=== PATIENT | female | born 1975 ===

== ENCOUNTER 2024-09-20 13:49 | Emergency (ER) | payer MEDICAID, SELFPAY ==
[2024-09-20 13:54] VITALS: BP 136/74; PULSE 80; RESP 18; TEMP 36.6; O2SAT 98; BMI 26.5
--- NOTE | 2024-09-20 13:54 | ED_ITS ---
HPI - Abdominal Pain General Chief Complaint: Abdominal Pain Stated Complaint: Abd pain/swelling, headache, Tingling all over Time Seen by Provider: 09/20/24 17:14 History of Present Illness ED Provider: Chet Huang MD HPI narrative: 48-year-old female with no primary physician/medical insurance who presents with acute intermittent an acute on chronic right low back pain with radicular symptoms down the right leg as well as subjective abdominal distention discomfort particularly in the midepigastrium and bilateral lower quadrants. No vomiting but she does endorse nausea. Appetite has been good. She moves her bowels daily denies hard stool or constipation. No burning or frequency or other urinary symptoms. Related Data Allergies Allergy/AdvReac Type Severity Reaction Status Date / Time Penicillins (PCN) Allergy Unknown Verified 09/20/24 13:57 [facility] Social History Social History Alcohol intake: former Physical Exam ED Exam Exam: EXAM: Gen: Alert, awake, well appearing, well hydrated. Head: Atraumatic Eyes: Anicteric, Normal conjunctiva. ENT: Moist mucosa, no pallor. ? Neck: Supple. Skin: ?No observable rash or bruising on exposed or examined skin Respiratory: Breathing comfortably, No distress.Clear to auscultation bilaterally, symmetric chest expansion, No wheeze, rales, ronchi. Cardiovascular: Regular rate and rhythm. No murmurs or rub. Well perfused periphery, warm extremities. No edema. ? Abdominal: Mild obesity of the abdomen. Minimal epigastric tenderness Soft, no objective distension. No palpable masses or obvious organomegaly. ?No guarding, no rebound tenderness or other peritoneal findings. : No flank tenderness. Neuro: Alert. Gross movement of all extremities intact. ? Psych: Calm. Cooperative. MSK: No grossly visible deformity. Mild right lumbosacral tenderness pain with passive elevation bilateral legs left greater than right in supine position. No CVAT. Normal muscular tone full range of motion of the hips knees ankles. Vital signs: See flowsheet Vital Signs: Vital Signs - 24 hr 09/20/24 18:01 09/20/24 18:02 Temperature 97.0 F 97.0 F Pulse Rate 58 58 Respiratory Rate 14 14 Blood Pressure 144/90 H 144/90 H Pulse Oximetry 98 98 Oxygen Delivery Method Room Air Room Air BMI result Body Mass Index 26.5 Procedures Procedure Narrative Procedure Narrative: EMERGENCY ULTRASOUND INTERPRETATION-Limited Retroperitoneal (Renal) [This study was ordered, performed, and interpreted by myself. The study reveals: Impression: NO EVIDENCE OF UROLOGIC OBSTRUCTION] [Indication: FLANK PAIN Bladder: ANECHOIC URINE Right Kidney: NO HYDRONEPHROSIS Left Kidney: NO HYDRONEPHROSIS Performed by: Chet Huang MD Images were stored CPT: 43849] Course Course Course Narrative: CHRIS Dickerson 09/20/24 1355 This is a Rapid Medical Examination (RME) performed by Juju Cardozo PA-C in triage. Full HPI, ROS, assessment and treatment plan per primary provider in the Main ED. Hx: 48 yo F here for eval of diffuse abdominal pain/bloating x1. reports nausea with eating. s/p tubal ligations - no other abd surgeries Plan: labs, UA Medical Decision Making Medical Decision Making MDM Narrative: Medical Decision Makin-year-old female with history of hypothyroidism chronic recurring abdominal discomfort today has this once again comes for evaluation. Unfortunately patient is describing an uninsured status with no regular PCP. I was able to review ED record from September [address] abdomen and lumbar spine was done at that time with degenerative disc disease and bulging discs in the lumbar spine likely causing a recurrence of radicular pain today. There is no motor deficits or red flag signs or symptoms to suggest cauda equina or cord compression. She is afebrile looks well and is ambulatory. She may be constipated she does not have significant tenderness to suggest that this is an acute surgical etiology. Considered but doubt diverticulitis. Considered but unlikely urinary infection or other urinary etiology given the urinalysis labs and overall presentation and examination. She may be bloated/constipated/gas/gastritis/GERD. We will try to get case management involved see if they can help with establishing insurance Preliminary Favored Differential Diagnosis: [ ] among additional considered etiologies Testing Interpreted Independently: Not Applicable Radiology or Lab testing Results Reviewed: Not Applicable Consults: Case management for uninsured status. Independent Historians/External Chart Reviews: I reviewed [facility] records specifically 09/16/2023 ED records including documentation of the plan of care and CTs which showed no acute abdominal pathology and positive bulging discs L4-L5 lumbar Social Determinants of Health Impacting MDM/Planning: Not Applicable Lab Data 09/20/24 14:16 09/20/24 14:16 Labs: Lab Results 09/20/24 Range/Units 14:16 WBC 7.3 (4.8-10.8) X10*3/uL RBC 3.88 L (4.20-5.50) X10*6/uL Hgb 12.0 (12.0-16.0) g/dl Hct 35.7 L (37.0-47.0) % MCV 92.0 (80.0-98.0) fL MCH 30.9 (27.0-33.0) pg MCHC 33.6 (31.0-35.0) g/dl RDW 14.4 (11.0-16.0) % Plt Count 218 (160-400) X10*3/uL MPV 9.8 (9.4-12.3) fL Immature Gran % (Auto) 0.5 H (0.0-0.4) % Neut % (Auto) 62.8 (45-73) % Lymph % (Auto) 21.6 (20-40) % [place] % (Auto) 10.4 (2-11) % Eos % (Auto) 3.7 (0-4) % Baso % (Auto) 1.0 (0-2) % Lymph # (Auto) 1.6 (1.2-4.9) X10*3/uL [place] # (Auto) 0.8 (0.1-1.2) X10*3/uL Eos # (Auto) 0.3 (0.0-0.4) X10*3/uL Baso # (Auto) 0.1 (0.0-0.2) X10*3/uL Abs Immat Gran (auto) 0.04 H (0.00-0.03) X10*3/uL Absolute Neuts (auto) 4.6 (2.0-8.3) x10*3/uL Absolute Nucleated RBC 0.000 (0.0-0.012) X10*3/uL Nucleated RBC % (auto) 0.0 (0.0-0.2) /100WBC Sodium 139 (135-145) mmol/L Potassium 4.0 (3.3-5.1) mmol/L Chloride 105 (96-108) mmol/L Carbon Dioxide 26 (22-29) mmol/L Anion Gap 12 (12-20) BUN 12 (9-16) mg/dL Creatinine 0.90 (0.5-1.4) mg/dL Estim Creat Clear Calc 69.4 Estimated GFR > 60 Random Glucose 82 (60-115) mg/dL Calcium 9.3 (8.4-10.2) mg/dL Magnesium 2.3 (1.6-2.6) mg/dL Total Bilirubin 0.2 (0.0-1.0) mg/dL AST 46 H (5-31) U/L ALT 36 H (0-31) U/L Alkaline Phosphatase 97 (39-117) U/L Total Protein 7.5 (6.5-8.0) g/dL Albumin 4.6 (3.5-5.0) g/dL Lipase 42 (8-78) U/L Urine Color Yellow Urine Appearance Clear Urine pH 7.0 (5.0-9.0) Ur Specific [place] 1.025 (1.005-1.025) Urine Protein Negative (Neg-Trace) mg/dL Urine Glucose (UA) Negative (Negative) mg/dL Urine Ketones Trace (Negative) mg/dL Urine Blood Negative (Negative) Urine Nitrite Negative (Negative) Ur Leukocyte Esterase Negative (Negative) Medications Administered Discontinued Medications Generic Name Dose Route Start Last Admin Trade Name Bernadine PRN Reason Stop Dose Admin Acetaminophen 975 mg 09/20/24 17:33 09/20/24 17:40 Acetaminophen 325 Mg Tablet PO 09/20/24 17:34 975 mg ONCE ONE Administration Al Hydroxide/Mg Hydroxide 30 ml 09/20/24 17:33 09/20/24 17:40 Magnesium Hydrox/Alum Hydrox 30 Ml Oral.Susp PO 09/20/24 17:34 30 ml ONCE ONE Administration Ibuprofen 600 mg 09/20/24 17:33 09/20/24 17:40 Ibuprofen 600 Mg Tablet PO 09/20/24 17:34 600 mg ONCE ONE Administration Simethicone 160 mg 09/20/24 17:33 09/20/24 17:40 Simethicone 80 Mg Tab.Chew PO 09/20/24 17:34 160 mg ONCE ONE Administration Discharge Plan Discharge Clinical Impression: Abdominal pain, Bulging lumbar disc Patient Disposition: Home, Self-Care Instructions: Acute Abdominal Pain (DC) Additional Instructions: _ DISCHARGE DIAGNOSES: Abdominal pain unclear cause Right low back pain acute on chronic likely from bulging discs in the lumbar spine HISTORY OF PRESENTATION: ?Abdominal pain this subjective distention and right low back pain EMERGENCY DEPARTMENT COURSE,TESTS, TREATMENTS: While in the ED today we did lab work including blood counts electrolytes kidney liver function which was reassuring you had a mild elevation of the liver function tests. You had an ultrasound of your kidneys with no sign of blockage. Your liver showed signs of fatty liver disease DISCHARGE MEDICATIONS: ?[We have made no changes to your regular medication regimen] FOLLOW-UP: ?Call your primary or general physician soon as possible to discuss your symptoms, your ED visit and to discuss follow up plans Call for primary doctor office as we discussed INSTRUCTIONS ?& RETURN PRECAUTIONS: If any symptoms change first call your primary physician, if it is after-hours your primary doctors office should have a provider risk control product liability director you can speak with. If the symptoms are severe or very concerning to you then call 911 or return to the ED. Chet Huang MD Emergency Physician [facility] Interventions: ED Discharge Assessment Last Done: 09/20/24 18:02 Discharge Date/Time: 09/20/24 18:03 Print Language: Serbian
[2024-09-20 14:51] LABS: MANUAL DIFF FLAG NO
[2024-09-20 14:52] LABS: Hematocrit 35.7 % (37.0-47.0); Hemoglobin 12.0 g/dl (12.0-16.0); Imm Gran Abs Auto 0.04 X10*3/uL (0.00-0.03); Imm Gran Pct Auto 0.5 % (0.0-0.4); Lymphocytes Absolute Auto 1.6 X10*3/uL (1.2-4.9); Mean Corpuscular HGB Conc 33.6 g/dl (31.0-35.0); Mean Corpuscular Hemoglobin 30.9 pg (27.0-33.0); Mean Corpuscular Volume 92.0 fL (80.0-98.0); NRBC Abs Auto 0.000 X10*3/uL (0.0-0.012); NRBC Pct Auto 0.0 /100WBC (0.0-0.2); Platelet Count 218 X10*3/uL (160-400); Red Blood Count 3.88 X10*6/uL (4.20-5.50); White Blood Count 7.3 X10*3/uL (4.8-10.8)
[2024-09-20 15:04] LABS: Appearance Urine Clear; Glucose Urine UA Negative (Negative); PH 7.0 (5.0-9.0); Specific Gravity - Urine 1.025 (1.005-1.025)
[2024-09-20 15:07] LABS: Alanine Aminotransferase 36 U/L (0-31); Albumin Level 4.6 g/dL (3.5-5.0); Alkaline Phosphatase 97 U/L (39-117); Anion Gap 12 (12-20); Aspartate Amino Transferase 46 U/L (5-31); Blood Urea Nitrogen 12 mg/dL (9-16); Calcium 9.3 mg/dL (8.4-10.2); Carbon Dioxide 26 mmol/L (22-29); Chloride 105 mmol/L (96-108); Creatinine Clr Calc Pharmacy 69.4; Estimated Glomerular Filt Rate > 60; Lipase 42 U/L (8-78); Magnesium 2.3 mg/dL (1.6-2.6); Potassium 4.0 mmol/L (3.3-5.1); Sodium 139 mmol/L (135-145); Total Protein 7.5 g/dL (6.5-8.0)
[2024-09-20] MEDS: Magnesium Hydrox/Alum Hydrox 30 ML ORAL.SUSP PO (17:40)
[2024-09-20 18:01] VITALS: BP 144/90; PULSE 58; RESP 14; TEMP 36.1; O2SAT 98
[2024-09-20 18:02] VITALS: BP 144/90; PULSE 58; RESP 14; TEMP 36.1; O2SAT 98
== END 2024-09-20 18:03 | disposition home or self-care (01) ==
PROVIDERS: Physician Assistant Medical; Emergency Provider Emergency Medicine
DX: M51.369 Other intervertebral disc degeneration, lumbar region without mention of lumbar back pain or lower extremity pain (principal); R10.2 Pelvic and perineal pain; M54.50 Low back pain, unspecified; M79.604 Pain in right leg; R11.0 Nausea
CPT/HCPCS: 36415; 80053; 81003; 83690; 83735; 85025; 99283; 99284

== ENCOUNTER 2024-10-08 13:07 | Emergency (ER) | payer MEDICAID, SELFPAY ==
[2024-10-08 13:16] VITALS: BP 155/97; PULSE 96; RESP 18; TEMP 36.7; O2SAT 97; BMI 28.7
--- NOTE | 2024-10-08 13:21 | ED.GENADULT ---
HPI - General Adult General Chief complaint: Animal Bite Stated complaint: swollen left hand due to cat scratch Time Seen by Provider: 10/08/24 13:19 Source: patient, RN notes reviewed and old records reviewed Mode of arrival: ambulatory Limitations: no limitations History of Present Illness ED Provider: Luis HPI narrative: 48-year-old female presents for evaluation of cat scratches to her left arm and face. This was an encounter with her own cat who is an indoor cat. The patient tried to peanut picker her that around 4:30 a.m. this morning. The cat became and ligaments with the left arm/wrist and ribs side of her face. The patient with some swelling to the left hand and wrist today prompting her visit. She has full range of motion on denies fevers or chills The patient does not know when her last tetanus shot was Related Data Previous Rx's ?Medication ?Instructions ?Recorded doxycycline hyclate 100 mg tablet 100 mg PO BID #14 tabs 10/08/24 metronidazole 500 mg tablet 500 mg PO Q8H #21 tabs 10/08/24 Allergies Allergy/AdvReac Type Severity Reaction Status Date / Time Penicillins (PCN) Allergy Unknown Verified 10/08/24 13:18 Review of Systems Constitutional: Constitutional: Denies chills and Denies fever(s) Cardiovascular: Cardiovascular: Denies chest pain Musculoskeletal: Musculoskeletal: Reports arthralgias, Reports joint swelling, Reports limited range of motion, Denies radiating pain into limb and Denies stiffness Integumentary/Breasts: Skin/Breast: Reports wounds Psychiatric: Psychiatric: Denies anxiety PMFSH Social History Social History Alcohol intake: former Advance Directives: No Advance Directives Information Provided: No Do you have a plan to hurt others: No Plan Physical Exam ED Vital Signs: Vital Signs - 24 hr 10/08/24 13:16 10/08/24 13:28 10/08/24 13:29 Temperature 98.1 F 98.1 F 98.1 F Pulse Rate 96 96 96 Respiratory Rate 18 18 18 Blood Pressure 155/97 H 155/97 H 155/97 H Pulse Oximetry 97 97 97 Oxygen Delivery Method Room Air Room Air Room Air BMI result Body Mass Index 28.7 Const General: healthy appearing, comfortable, no acute distress, alert and awake Nutritional Appearance: well nourished Orientation/consciousness: patient oriented x3 Eyes Eyelids: Yes eyelids normal Conjunctivae: conjunctivae normal Sclerae: sclerae normal Corneas: corneas normal Pupils: Equal, round and reactive pupils present EOM: EOMs intact bilaterally Neck Neck: Yes full ROM Resp Effort & Inspection: normal respiratory effort, able to speak in complete sentences and not labored Cardio Rate: regular rate Rhythm: regular rhythm Skin Other: The patient has numerous superficial abrasions to the left dorsal forearm, wrist and hand. There is minimal edema, no significant surrounding erythema. The patient retains full range of motion with flexion-extension of the wrist as well as all digits of the left hand. There were additionally several small abrasions to the right side of the face in the periorbital region. No deep wounds or lacerations, no surrounding erythema General skin exam: elasticity normal Neuro General: patient oriented x3 Cranial nerves: Yes Equal, round and reactive pupils present and Yes Bilaterally intact EOM present Cognition (Neuro): normal cognition Extrem Other: Moving all extremities well without any obvious deformities Medications Administered Discontinued Medications Generic Name Dose Route Start Last Admin Trade Name Freq PRN Reason Stop Dose Admin Diphtheria/Tetanus/Acell Pertussis 0.5 ml 10/08/24 13:19 10/08/24 13:26 Diphth,Pertus(Acell),Tet Adult 0.5 Ml Syringe IM 10/08/24 13:20 0.5 ml .ONCE ONE Administration Medical Decision Making Medical Decision Making [facility] Narrative: The patient has several small superficial scratches to the left hand, wrist and right side of the face. No deep wounds or lacerations. The wounds were cleaned by the patient already. There was no evidence of active infection. The patient reports a penicillin allergy we will treat with doxycycline and Flagyl for prophylaxis. The patient's tetanus was updated. Return precautions were given Differential Diagnosis Differential Diagnoses: The differential diagnosis associated with the presentation includes Cat scratch Cat bite Cellulitis Puncture wound Abrasion Discharge Plan Discharge Clinical Impression: Cat scratch of hand Patient Disposition: Home, Self-Care Instructions: Animal Bite (ED) Additional Instructions: Take both antibiotics as prescribed for 7 days to prevent infection Keep the area clean and dry, you may apply topical antibiotic pain Return to the ER if you develop significantly worsening pain, swelling or fevers. Your tetanus was updated today Prescriptions: New doxycycline hyclate 100 mg tablet 100 mg PO BID Qty: 14 0RF metronidazole 500 mg tablet 500 mg PO Q8H Qty: 21 0RF Interventions: ED Discharge Assessment Last Done: 10/08/24 13:29 ED Discharge Assessment Last Done: 10/08/24 13:28 Discharge Date/Time: 10/08/24 13:30 Print Language: Spanish
[2024-10-08] MEDS: Diphth,Pertus(ACell),Tet Adult 0.5 ML SYRINGE IM (13:26)
--- OUTSIDE RECORDS SUMMARY | 2024-10-08 13:27 | XMS_ITS | Clinical Summary ---
Author Organization [facility] Address [address] [place] [address] Care Team Providers Care Conference Interpreter Name Role Phone Bailey Islas LASTER HAND-C Primary Care Provider + Source Comments PLEASE NOTE, if this patient is a minor, it may be UNLAWFUL to discuss sensitive information that is contained in these records (such as FAMILY PLANNING, MENTAL HEALTH or SUBSTANCE ABUSE) with the minor patient's parent or other person without the patient's specific authorization.VIVIANA Allergies Active Allergy Reactions Criticality Noted Date Comments Penicillins Other (See Comments) 03/08/2017 Medications beclomethasone dipropionate (QVAR) 40 mcg/actuation inhalerIndication s:Mild persistent asthma without complication (HHS-HCC) Inhale 2 Puffs into the lungs 2 (two) times daily 8.7 Inhaler 5 0 Active albuterol sulfate 90 mcg/actuation inhalerIndication s:Mild persistent asthma without complication (HHS-HCC) Inhale 2 Puffs into the lungs every 4 (four) hours as needed for wheezing 18 g 5 0 Active ferrous sulfate 325 mg (65 mg iron) tabletIndications :Microcytic anemia,Iron deficiency anemia, unspecified iron deficiency anemia type Take 1 Tablet by mouth once daily with breakfast 30 Tablet 2 1 Active calcipotriene-bet amethasone (TACLONEX) 0.005-0.064 % ointmentIndicatio ns:Plaque psoriasis Apply topically once daily treat psoriasis. 100 g 2 1 Active sertraline (ZOLOFT) 50 mg tabletIndications :generalized anxiety disorder Take 1 Tablet by mouth every morning Indications: repeated episodes of anxiety 30 Tablet 2 1 Active clobetasoL (TEMOVATE) 0.05 % ointmentIndicatio ns:Plaque psoriasis Apply topically 2 (two) times daily 45 g 1 Active ibuprofen 800 mg tabletIndications :Frequent headaches Take 1 Tablet by mouth 3 (three) times daily as needed for headaches, moderate pain or pain 90 Tablet 1 1 Active Active Problems Problem Noted Date Diagnosed Date Class 1 obesity 07/31/2020 Plaque psoriasis 07/31/2020 Anxiety 07/31/2020 Light tobacco smoker 07/31/2020 Other specified hypothyroidism 03/24/2018 Overview (03/24/2018): Patient reports needing thyroid hormone supplementation when she was years ago. TSH . Immunizations Immunization Administration Dates Next Due Flu, Preservative Free 03/08/2017 TDAP 03/08/2017 Social History Tobacco Use Types Packs/Day Years Used Date Smoking Tobacco: Every Day Cigarettes Smokeless Tobacco: Never Tobacco Cessation:Ready to Q uit: Yes Alcohol Use Standard Drinks/Week Comments Yes 0 (1 standard drink = 0.6 oz pur e alcohol) Social Connections Answer Date Recorded Connectedness 0 10/23/2023 Financial Resource Strain Answer Date R ecorded Financial Resource Strain 0 2018 Stress Answer Date Recorded Stress 0 10/07/2018 Physical Activity Answer Date Recorded Physical Activity 0 10/07/2018 Food Insecurity Answer Date Recorded Food 0 11/11/2023 Transportation Needs Answer Date Record ed Transportation 0 10/07/2018 Housing Stability Answer Date Recorded Housing 0 10/07/2018 Safety and Environment Answer Date Nicola rded Safety 0 07/19/2020 Utilities Answer Date Recorded Utilities 0 10/07/2018 Employment Answer Date Recorded Employment 0 10/07/2018 Comments No Sex and Gender Information Value Date Recorded Sex Assigned at Female 03/08/2017 1:32 PM PST Legal Sex Female 11:30 AM PST Gender Identity Female 03/08/2017 1:32 PM PST Sexual Orientation Straight 03/08/2017 1: 32 PM PST Last Filed Vital Signs Vital Sign Reading Time Taken Comments Blood Pressure 110/84 07/19/2020 2:16 PM EDT Pulse 73 07/19/2020 2:16 PM EDT Temperature 37.3 C (99.1 F) 07/19/2020 2:16 PM EDT Respiratory Rate 16 07/19/2020 2:16 PM EDT Oxygen Saturation 97% 07/19/2020 2:16 PM EDT Inhaled Oxygen Concentration - - Weight 77.1 kg (170 lb) 07/19/2020 2:16 PM EDT Height 157.5 cm (5' 2 ) 07/19/2020 2:16 PM EDT Body Mass Index 31.09 07/19/2020 2:16 PM EDT Plan of Treatment Health Maintenance Due Date Last Done Comments Anxiety Screening 1977 HPV Screening 1977 Hepatitis C Screening 1977 Pap + HPV 1977 Imm-Hepatitis B (1 of 3 - 19 + 3-dose series) 1996 Imm-Pneumococcal (1 of 2 - PCV) 1996 Cervical Cancer Screening 1998 Pap Smear 1998 Breast Cancer Screening (Mammogram) 2017 Annual Wellness (Adult): Ind icated (All Coverage) 03/08/2018 03/08/2017 Hypertension Screening (#1) 07/19/2021 Relationship Safety Screening/Counseling 07/19/2021 07/19/2020 TSH Monitoring 07/19/2021 07/19/2020, 03/24/2018 Tobacco Cessation Counseling (#1) 07/19/2021 021 Tobacco Screening 07/19/2021 07/19/2020 CT Colonography 2022 Colonoscopy 2022 Colorectal Cancer Screening 2022 FIT/gFOBT 2022 Fecal DNA 2022 Flexible Sigmoidoscopy 2022 Diabetes Screening 07/20/2023 07/19/2020, 0 07/19/2020, 03/24/2018 [id number] ( season) 2023 021, 10/10/2020 Alcohol and Drug Screen 02/16/2024 07/19/2020, 03/08 Depression Annual Screen 02/16/2024 07/19/2020, 02/16 Imm-Influenza (#1) 2024 03/08/2017 Lipid Screening 07/19/2025 07/19/2020, 03/24/2018 Imm-DTaP/Tdap/Td (2 - Td or Tdap) 03/08/2027 018 HIV Screening Completed 07/19/2020 Cervical Ablation/Cold-Knife Conization Discontinued Cervical Cryotherapy Discontinued Colposcopy Discontinued Endometrial Biopsy Discontinued Excision/Leep Discontinued HPV Genotyping Discontinued Vaginal Pap Discontinued Vulvoscopy Discontinued Procedures Procedure Name Priority Date/Time Associated Diagnosis Comments HIV 1/2 AG & AB W/RFLX (4TH GEN) Routine 07/19/2020 3:29 PM EDT Screening for HIV (human immunodeficiency virus) TSH W/RFLX FREE T4 Routine 07/19/2020 3: 29 PM EDT Annual physical exam COMPREHENSIVE METABOLIC PANEL Routine 07/19/2020 3:29 PM EDT Annual physical exam LIPID PANEL Routine 07/19/2020 3:29 PM EDT Annual physical exam from Last 3 Months or Most Recently Relevant to Health Maintenance Results * HIV 1/2 AG & AB W/RFLX (4TH GEN) (07/19/2020 3:29 PM EDT) Pathologist [facility] HIV AG/AB, 4TH GEN NON-REAC TIVE NON-REAC TIVE [facility] Comment: HIV-1 antigen and HIV-1/HIV-2 antibodies were not detected. There is no laboratory evidence of HIV infection. PLEASE NOTE: This information has been disclosed to you from records whose confidentiality may be protected by state law. If your state requires such protection, then the state law prohibits you from making any further disclosure of the information without the specific written consent of the person to whom it pertains, or as otherwise permitted by law. A general authorization for the release of medical or other information is NOT sufficient for this purpose. For additional information please refer to http://education.EVOFEM.Machina/faq/EZE256 (This link is being provided for informational/ educational purposes only.) The performance of this assay has not been clinically validated in patients less than 2 years old. Blood Blood / Unknown 07/19/2020 3 :29 PM EDT 07/19/2020 3:29 PM EDT us Kimmy Valdovinos PA-C LAB - BLOOD DRAW Edited Result - Final Performing Organization Address [facility] Co de Phone Number [facility] [address] [address], [facility] [address] [address] * (ABNORMAL) TSH W/RFLX FREE T4 (07/19/2020 3:29 PM EDT) TSH W/REFLEX TO FT4 59.26(H) 0.40 - 4.50 mIU/L [facility] Comment: Reference Range > or = 20 Years 0.40-4.50 Ranges First trimester 0.26-2.66 Second trimester 0.55-2.73 Third trimester 0.43-2.91 Blood Blood / Unknown 07/19/2020 3 :29 PM EDT 07/19/2020 3:29 PM EDT us Kimmy Valdovinos PA-C LAB - BLOOD DRAW Edited Result - Final Performing Organization Address [facility] Co de Phone Number [facility] [address] [address], [facility] [address] [address] * (ABNORMAL) LIPID PANEL (07/19/2020 3:29 PM EDT) CHOLESTEROL, TOTAL 178 <200 mg/dL [facility] HDL CHOLESTEROL 30(L) > OR = 50 mg/dL [facility] TRIGLYCERIDES 196(H) <150 mg/dL [facility] LDL-CHOLESTEROL 116(H) 99 mg/dL (calc) [facility] Comment: Reference range: <100 Desirable range <100 mg/dL for primary prevention; <70 mg/dL for patients with CHD or diabetic patients with > or = 2 CHD risk factors. LDL-C is now calculated using the Bashir calculation, which is a validated novel method providing better accuracy than the Friedewald equation in the estimation of LDL-C. César KAPOOR et al. AGUSTIN. 2013;310(19): 4110-1225 (http://7Road.[employer]/faq/WWF814) CHOL/HDLC RATIO 5.9(H) <5.0 (calc) [employer] NON-HDL CHOLESTEROL 148(H) <130 mg/dL (calc) [employer] Comment: For patients with diabetes plus 1 major ASCVD risk factor, treating to a non-HDL-C goal of <100 mg/dL (LDL-C of <70 mg/dL) is considered a therapeutic option. Blood Blood / Unknown 07/19/2020 3 :29 PM EDT 07/19/2020 3:29 PM EDT us Kimmy Valdovinos PA-C LAB - BLOOD DRAW Edited Result - Final [facility] [address] [address], [employer] [facility] [address] [address] * COMPREHENSIVE METABOLIC PANEL (07/19/2020 3:29 PM EDT) GLUCOSE 66 65 - 99 mg/dL [employer] [facility] Comment: Fasting reference interval UREA NITROGEN (BUN) 11 7 - 25 mg/dL [employer] [facility] CREATININE (blood) 0.85 0.50 - 1.10 mg/dL [employer] [facility] GFR ESTIMATED 85 > OR = 60 mL/min/[address] [employer] [facility] EGFR 98 > OR = 60 mL/min/[address] [employer] [address] [facility] BUN/CREATININE RATIO NOT APPLICABLE 6 - 22 [employer] SODIUM 137 135 - 146 mmol/L [employer] POTASSIUM 4.0 3.5 - 5.3 mmol/L [employer] CHLORIDE 104 98 - 110 mmol/L [employer] CARBON DIOXIDE 25 20 - 32 mmol/L [employer] CALCIUM 9.6 8.6 - 10.2 mg/dL [employer] PROTEIN, TOTAL 7.5 6.1 - 8.1 g/dL [facility] ALBUMIN 4.7 3.6 - 5.1 g/dL [facility] GLOBULIN 2.8 1.9 - 3.7 g/dL (calc) [facility] ALBUMIN/GLOBUL IN RATIO 1.7 1.0 - 2.5 (calc) [facility] BILIRUBIN, TOTAL 0.3 0.2 - 1.2 mg/dL [facility] ALKALINE PHOSPHATASE 85 31 - 125 U/L [facility] AST 24 10 - 30 U/L [facility] ALT 25 6 - 29 U/L [facility] Blood Blood / Unknown 07/19/2020 3 :29 PM EDT 07/19/2020 3:29 PM EDT Kimmy Valdovinos PA-C LAB - BLOOD DRAW Edited Result - Final [facility] [address] [address], [facility] [address] [address] from Last 3 Months or Most Recently Relevant to Health Maintenance Care Teams Conference Interpreter Relationship Specialty Start Date End Date Bailey Islas FNP-C [address] [place] [address] PCP - General 10/29/21
[2024-10-08 13:28] VITALS: BP 155/97; PULSE 96; RESP 18; TEMP 36.7; O2SAT 97
[2024-10-08 13:29] VITALS: BP 155/97; PULSE 96; RESP 18; TEMP 36.7; O2SAT 97
== END 2024-10-08 13:30 | disposition home or self-care (01) ==
PROVIDERS: Emergency Provider Emergency Medicine
DX: S60.512A Abrasion of left hand, initial encounter (principal); W55.03XA Scratched by cat, initial encounter; Y93.89 Activity, other specified; Y92.89 Other specified places as the place of occurrence of the external cause; Y99.9 Unspecified external cause status; M79.89 Other specified soft tissue disorders; Z23 Encounter for immunization
CPT/HCPCS: 90471; 90715; 99282; 99284

== ENCOUNTER 2024-10-09 15:30 | Inpatient (IN) | payer MEDICAID, SELFPAY ==
--- NOTE | ~2024-10-09 | XR_ITS ---
CLINICAL HISTORY: evaluate for FB 3 views of each hand Comparison: None Findings: Right hand: No fractures or dislocations. Mild degenerative changes of the interphalangeal joints. No erosions. No radiopaque foreign body. Left hand: No fractures or dislocations. 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 No erosions. No radiopaque foreign body. IMPRESSION: 1. No acute findings 2. No radiopaque foreign body. This document has been electronically signed by: Jasmeet Velez MD on 10/09/2024 19:58:18
[2024-10-09 15:54] VITALS: BP 135/78; PULSE 89; RESP 16; TEMP 36.8; O2SAT 98; BMI 25.6
--- NOTE | 2024-10-09 15:54 | ED.GENADULT ---
HPI - General Adult General Chief complaint: Extremity Problem Stated complaint: worsening both hands swelling (seen yesterday) Time Seen by Provider: 10/09/24 19:06 Source: patient Mode of arrival: ambulatory Limitations: no limitations History of Present Illness ED Provider: [facility] narrative: 48-year-old woman discharged on antibiotics doxycycline and metronidazole for reports of allergy to penicillin so she was not started on Augmentin, had tetanus updated, and took a total of 4 doses of antibiotics and came to the ER because she is having worsening swelling of her fingers and over the dorsum of her hand. No fevers or chills. Related Data Previous Rx's ?Medication ?Instructions ?Recorded doxycycline hyclate 100 mg tablet 100 mg PO BID #14 tabs 10/08/24 metronidazole 500 mg tablet 500 mg PO Q8H #21 tabs 10/08/24 Allergies Allergy/AdvReac Type Severity Reaction Status Date / Time Penicillins (PCN) Allergy Unknown Verified 10/09/24 16:00 Review of Systems Constitutional: Constitutional: Reports as per [facility] Social History Social History Alcohol intake: former Advance Directives: No Advance Directives Information Provided: Yes Do you have a plan to hurt others: No Plan Physical Exam ED Vital Signs: Vital Signs - 24 hr 10/09/24 15:54 10/09/24 20:18 Temperature 98.2 F 98.7 F Pulse Rate 89 79 Respiratory Rate 16 18 Blood Pressure 135/78 141/93 H Pulse Oximetry 98 96 Oxygen Delivery Method Room Air Room Air BMI result Body Mass Index 25.6 Const Other: Examination of bilateral upper extremities reveals worsening swelling of bilateral Radial ulnar pulses +2 Decreased flexion at the MCPs worse in the right hand 2nd and 3rd digit No active drainage We will range of motion of the shoulder and elbow Otherwise alert and oriented x4 patient Course Course Course Narrative: Rapid medical examination performed in triage by Dolly Brito PA-C. Patient is a 48 year old assigned female at presenting to the emergency department with a worsening cat bite. Detailed physical exam and review of systems are deferred to the chain mortiser operator. Labs ordered. Patient placed back in the waiting room pending room availability and results. Medications Administered Discontinued Medications Generic Name Dose Route Start Last Admin Trade Name Freq PRN Reason Stop Dose Admin Cefepime HCl 2 gm in 50 mls @ 100 mls/hr 10/09/24 19:23 10/09/24 20:42 Maxipime IV 10/09/24 19:52 Infused ONCE ONE Infusion Medical Decision Making Medical Decision Making MDM Narrative: Presenting with worsening cellulitis of bilateral hands on doxycycline and Flagyl, due to a known penicillin allergy, we will obtain cultures and start her on cefepime, consulted Dr. More for orthopedic consult tomorrow, we will obtain x-ray to evaluate for any foreign bodies such as canine teeth, less likely subcutaneous emphysema No evidence for arterial insufficiency, venous insufficiency, crepitus to suspect deep space infection Differential Diagnosis Differential Diagnoses: The differential diagnosis associated with the presentation includes (See above) Admission/Observation 2022 Emergency Medicine Coding Guide from [employer] on 10/09/2024 All calculations should be rechecked by clinician prior to use RESULT SUMMARY: 5 Estimated Level of Service Problems: High (5) Risk: High (5) Data: Extensive (5) NARRATIVE MDM: This patient's problem complexity is High as patient: may have an acute or chronic illness/injury posing a threat to life or body function. This patient's risk is High due to: overall presentation requiring evaluation for a potentially High-risk process. This patient's data complexity is Extensive due to: -multiple tests ordered/reviewed -independent interpretation of imaging or EKG -discussion of management/testing with external professional INPUTS: Number and Complexity ?> 2 = 5: illness/injury w/life or body threat (b) Risk level ?> 4 = High Tests ordered ?> 3 = >= Tests results reviewed (excluding labs) ?> 2 = 2 Prior external notes reviewed ?> 0 = 0 Assessment requiring and independent historian ?> 0 = No Independent interpretation of tests ?> 1 = Yes Discussed management/test interpretation w/external professional ?> 1 = Yes Lab Data [facility] Lab Attestation statement: I reviewed the patient's lab results. 10/09/24 16:52 10/09/24 16:52 Labs: Lab Results 10/09/24 Range/Units 16:52 WBC 11.4 H (4.8-10.8) X10*3/uL RBC 3.89 L (4.20-5.50) X10*6/uL Hgb 12.1 (12.0-16.0) g/dl Hct 34.7 L (37.0-47.0) % MCV 89.2 (80.0-98.0) fL MCH 31.1 (27.0-33.0) pg MCHC 34.9 (31.0-35.0) g/dl RDW 14.4 (11.0-16.0) % Plt Count 218 (160-400) X10*3/uL MPV 9.4 (9.4-12.3) fL Immature Gran % (Auto) 0.5 H (0.0-0.4) % Neut % (Auto) 79.4 H (45-73) % Lymph % (Auto) 9.9 L (20-40) % Labette % (Auto) 8.2 (2-11) % Eos % (Auto) 1.7 (0-4) % Baso % (Auto) 0.3 (0-2) % Lymph # (Auto) 1.1 L (1.2-4.9) X10*3/uL Labette # (Auto) 0.9 (0.1-1.2) X10*3/uL Eos # (Auto) 0.2 (0.0-0.4) X10*3/uL Baso # (Auto) 0.0 (0.0-0.2) X10*3/uL Abs Immat Gran (auto) 0.06 H (0.00-0.03) X10*3/uL Absolute Neuts (auto) 9.1 H (2.0-8.3) x10*3/uL Absolute Nucleated RBC 0.000 (0.0-0.012) X10*3/uL Nucleated RBC % (auto) 0.0 (0.0-0.2) /100WBC ESR 23 H (0-20) MM/HR Sodium 137 (135-145) mmol/L Potassium 3.3 (3.3-5.1) mmol/L Chloride 105 (96-108) mmol/L Carbon Dioxide 23 (22-29) mmol/L Anion Gap 12 (12-20) BUN 11 (9-16) mg/dL Creatinine 0.88 (0.5-1.4) mg/dL Estim Creat Clear Calc 69.9 Estimated GFR > 60 Random Glucose 128 H (60-115) mg/dL Lactic Acid 1.3 (0.5-2.0) mmol/L Calcium 9.0 (8.4-10.2) mg/dL Total Bilirubin 0.5 (0.0-1.0) mg/dL AST 38 H (5-31) U/L ALT 37 H (0-31) U/L Alkaline Phosphatase 101 (39-117) U/L C-Reactive Protein 9.88 H (< or = 0.50) mg/dL Total Protein 7.4 (6.5-8.0) g/dL Albumin 4.5 (3.5-5.0) g/dL Independent Interpretation I performed an independent interpretation of an: Plain X-Ray (No foreign bodies) Radiology Impression Discussion of test interpretation with radiology: I have reviewed the radiologist's reading. Critical Care Time Critical Care Time Critical Care Time: Yes Total Critical Care Time: 35 Attestation: Time is exclusive of separately billable procedures. Time includes: direct patient care, patient reassessment, coordination of patient care, interpretation of data (laboratory data, pulse oximetry, arterial blood gases and chest xrays), review of patient's medical records, medical consultation and documentation of patient care. Procedures excluded from critical care time: central intravenous line placement and electrocardiography. Discharge Plan Discharge Clinical Impression: Cellulitis of hand, left, Cellulitis of hand, right Patient Disposition: Admitted As Inpatient Print Language: Setswana
[2024-10-09 16:58] LABS: Hematocrit 34.7 % (37.0-47.0); Hemoglobin 12.1 g/dl (12.0-16.0); Imm Gran Pct Auto 0.5 % (0.0-0.4); MANUAL DIFF FLAG NO; Mean Corpuscular HGB Conc 34.9 g/dl (31.0-35.0); Mean Corpuscular Hemoglobin 31.1 pg (27.0-33.0); Mean Corpuscular Volume 89.2 fL (80.0-98.0); NRBC Pct Auto 0.0 /100WBC (0.0-0.2); Platelet Count 218 X10*3/uL (160-400); Red Blood Count 3.89 X10*6/uL (4.20-5.50); White Blood Count 11.4 X10*3/uL (4.8-10.8)
[2024-10-09 16:59] LABS: Imm Gran Abs Auto 0.06 X10*3/uL (0.00-0.03); Lymphocytes Absolute Auto 1.1 X10*3/uL (1.2-4.9); NRBC Abs Auto 0.000 X10*3/uL (0.0-0.012)
[2024-10-09 17:12] LABS: Alanine Aminotransferase 37 U/L (0-31); Albumin Level 4.5 g/dL (3.5-5.0); Alkaline Phosphatase 101 U/L (39-117); Anion Gap 12 (12-20); Aspartate Amino Transferase 38 U/L (5-31); Blood Urea Nitrogen 11 mg/dL (9-16); Calcium 9.0 mg/dL (8.4-10.2); Carbon Dioxide 23 mmol/L (22-29); Chloride 105 mmol/L (96-108); Creatinine Clr Calc Pharmacy 69.9; Estimated Glomerular Filt Rate > 60; Potassium 3.3 mmol/L (3.3-5.1); Sodium 137 mmol/L (135-145); Total Protein 7.4 g/dL (6.5-8.0)
--- OUTSIDE RECORDS SUMMARY | 2024-10-09 19:13 | XMS_ITS | Clinical Summary ---
Author Organization [address] Address [address] [place] [phone] Phone Care Team Providers Care Dog Trainer Name Role Phone Ruth Dorsey MD Primary Care Pr ovider Allergies Active Allergy Reactions Criticality Noted Date Comments Penicillins 03/01/2023 Medications levothyroxine (SYNTHROID, LEVOTHROID) 100 mcg tablet TAKE 1 TABLET BY MOUTH EVERY DAY 90 tablet 4 Active CRANBERRY EXTRACT-VITAMIN C ORAL Take by mouth daily. Active ferrous sulfate (IRON ORAL) Take by mouth daily. Active CHOLECALCIFEROL , VITAMIN D3, ORAL Take by mouth daily. Active albuterol HFA (PROAIR HFA ; PROVENTIL HFA ; VENTOLIN HFA) 90 mcg/actuation inhaler Inhale 2 Puffs into the lungs every 6 hours as needed for Cough, Wheezing or Shortness of Breath. 4 Active Active Problems Problem Noted Date Diagnosed Date Acquired hypothyroidism 03/01/2023 Gastroesophageal reflux disease without esophagi tis 03/01/2023 Iron deficiency anemia 03/01/2023 Menorrhagia with irregular cycle 03/01/2023 Moderate persistent asthma without complication 03/01/2023 Psoriasis 03/01/2023 Immunizations Name Administration Dates Next Due Influenza Quadravalent, MDCK , 0.5ml, with preservative (Flucelvax) 6mo and older 03/08/2017 Tdap Tetanus diptheria acell ular pertussis (Boostrix; Adacel) 7yo and older 03/08/2017 Surgical History Surgery Date Site/Laterality Comments TUBAL LIGATION 2009 PROCEDURE: HISTORICAL TUBAL LIGATION Social History Tobacco Use Types Packs/Day Years Used Date Smoking Tobacco: Every Day Smokeless Tobacco: Current Alcohol Use Standard Drinks/Week Comments Never 0 (1 standard drink = 0.6 oz pur e alcohol) Comments Unknown Sex and Gender Information Value Date Recorded Sex Assigned at Not on file Legal Sex Female 11:13 PM EST Gender Identity Not on file Sexual Orientation Not on file Obstetrics History Last Filed Vital Signs Vital Sign Reading Time Taken Comments Blood Pressure 118/80 10/05/2023 5:06 PM EDT Pulse 83 10/05/2023 5:06 PM EDT Temperature - - Respiratory Rate - - Oxygen Saturation - - Inhaled Oxygen Concentration - - Weight 72.1 kg (159 lb) 10/05/2023 5:06 PM EDT Height 157.5 cm (5' 2 ) 10/05/2023 5:06 PM EDT Body Mass Index 29.08 10/05/2023 5:06 PM EDT Plan of Treatment Health Maintenance Due Date Last Done Comments Breast Cancer Screening 1977 Hepatitis B Vaccines (1 of 3 - 19+ 3-dose series) 1996 Pneumococcal Vaccine: Pediatrics (0 to 5 Years) and At-Risk Patients (6 to 49 Years) (1 of 2 - PCV) 1996 Colorectal Cancer Screening: Colonoscopy 01/18/2022 HIV Screening 01/18/2022 Hepatitis C Screening 01/18/2022 Social Influencers of Health Screening 01/18/2022 COVID-19 Vaccine (3 - 2023-2 5 season) 2023 10/31/2020, 10/10/2020 Depression Screening 02/16/2024 Influenza Vaccine (#1) 2024 03/08/2017 DTaP,Tdap,and Td Vaccines (2 - Td or Tdap) 03/08/2027 03/08/2017 Cholesterol Screening (Lipid Panel) 03/01/2028 03/01/2023 Cervical Cancer Screening: HPV 03/09/2028 03/09/2023 HIB Vaccines Aged Out No longer eligi ble based on patient's age to complete this topic HPV Vaccines Aged Out No longer eligi ble based on patient's age to complete this topic Hepatitis A Vaccines Aged Out No long er eligible based on patient's age to complete this topic IPV Vaccines Aged Out No longer eligi ble based on patient's age to complete this topic MMR Vaccines Aged Out No longer eligi ble based on patient's age to complete this topic Meningococcal ACWY Vaccine Aged Out N o longer eligible based on patient's age to complete this topic Meningococcal B Vaccine Aged Out No l onger eligible based on patient's age to complete this topic RSV Immunization Patients Under 20 months Aged Out No longer eligible b ased on patient's age to complete this topic Varicella Vaccines Aged Out No longer eligible based on patient's age to complete this topic Procedures Procedure Name Priority Date/Time Associated Diagnosis Comments HPV Routine 03/09/2023 LIPID PANEL Routine 03/01/2023 from Last 3 Months or Most Recently Relevant to Health Maintenance Results * Cervical Cancer Screening: HPV (03/09/2023) Cervical Cancer Screening: HPV Negative, Abstracted Historical Provider HEALTH MAINTENANCE Final Result * (ABNORMAL) Lipid panel (03/01/2023) LDL/HDL Ratio 7(A) 0 - 4 Triglycerides 238(A) 0 - 150 mg/dL Cholesterol 206(A) 0 - 200 mg/dL HDL 30(A) >=40 mg/dL LDL Cholesterol 129(A) 0 - 100 mg/dL Blood Venous blood specimen / Unknown Historical Provider LAB BLOOD ORDERABLES Andie l Result from Last 3 Months or Most Recently Relevant to Health Maintenance Insurance [employer] Care Teams Dog Trainer Relationship Specialty Start Date End Date Ruth Dorsey MD PCP - General 02/09/23
--- OUTSIDE RECORDS SUMMARY | 2024-10-09 19:13 | XMS_ITS | Clinical Summary ---
Author Organization [facility] Address [address] [place] [address] Care Team Providers Care Tooth Clerk Name Role Phone Bailey Islas [employer]-C Primary Care Provider + Source Comments PLEASE [...] Diabetes Screening 07/20/2023 07/19/2020, 0 07/19/2020, 03/24/2018 [id number] ( season) 2023 021, 10/10/2020 Alcohol and [...] GEN) (07/19/2020 3:29 PM EDT) Pathologist [facility] HIV AG/AB, 4TH GEN NON-REAC TIVE NON-REAC TIVE [facility] Comment: HIV-1 antigen and HIV-1/HIV-2 antibodies were [...] purpose. For additional information please refer to http://education.[employer]/faq/TLJ079 (This link is being provided for informational/ educational purposes only.) The performance of this assay has not been clinically validated in patients less than 2 years old. Blood Blood / Unknown 07/19/2020 3 :29 PM EDT 07/19/2020 3:29 PM EDT us Kimmy Valdovinos PA-C LAB - BLOOD DRAW Edited Result - Final Performing Organization Address [facility] Co de Phone Number [facility] [address] [address], [facility] [address] [address] * (ABNORMAL) TSH W/RFLX FREE T4 (07/19/2020 3:29 PM EDT) TSH W/REFLEX TO FT4 59.26(H) 0.40 - 4.50 mIU/L [facility] Comment: Reference Range > or = 20 Years 0.40-4.50 Ranges First trimester 0.26-2.66 Second trimester 0.55-2.73 Third trimester 0.43-2.91 Blood Blood / Unknown 07/19/2020 3 :29 PM EDT 07/19/2020 3:29 PM EDT us Kimmy Valdovinos PA-C LAB - BLOOD DRAW Edited Result - Final Performing Organization Address [facility] Co de Phone Number [facility] [address] [address], [facility] [address] [address] * (ABNORMAL) LIPID PANEL (07/19/2020 3:29 PM EDT) CHOLESTEROL, TOTAL 178 <200 mg/dL [facility] HDL CHOLESTEROL 30(L) > OR = 50 mg/dL [facility] TRIGLYCERIDES 196(H) <150 mg/dL [facility] LDL-CHOLESTEROL 116(H) 99 mg/dL (calc) [facility] Comment: Reference range: <100 Desirable range <100 mg/dL for primary prevention; <70 mg/dL for patients with CHD or diabetic patients with > or = 2 CHD risk factors. LDL-C is now calculated using the Bashir calculation, which is a validated novel method providing better accuracy than the Friedewald equation in the estimation of LDL-C. César KAPOOR et al. AGUSTIN. 2013;310(19): 7770-0595 (http://[employer]/faq/QPM860) CHOL/HDLC RATIO 5.9(H) <5.0 (calc) [facility] NON-HDL CHOLESTEROL 148(H) <130 mg/dL (calc) [facility] Comment: For patients with diabetes plus 1 major ASCVD risk factor, treating to a non-HDL-C goal of <100 mg/dL (LDL-C of <70 mg/dL) is considered a therapeutic option. Blood Blood / Unknown 07/19/2020 3 :29 PM EDT 07/19/2020 3:29 PM EDT us Kimmy Valdovinos PA-C LAB - BLOOD DRAW Edited Result - Final [facility] [address] [address], [facility] [address] [address] * COMPREHENSIVE METABOLIC PANEL (07/19/2020 3:29 PM EDT) GLUCOSE 66 65 - 99 mg/dL [facility] Comment: Fasting reference interval UREA NITROGEN (BUN) 11 7 - 25 mg/dL [facility] CREATININE (blood) 0.85 0.50 - 1.10 mg/dL [facility] GFR ESTIMATED 85 > OR = 60 mL/min/1 .73m2 [facility] EGFR 98 > OR = 60 mL/min/1 .73m2 [facility] BUN/CREATININE RATIO NOT APPLICABLE 6 - 22 [facility] SODIUM 137 135 - 146 mmol/L [facility] POTASSIUM 4.0 3.5 - 5.3 mmol/L [facility] CHLORIDE 104 98 - 110 mmol/L [facility] CARBON DIOXIDE 25 20 - 32 mmol/L [facility] CALCIUM 9.6 8.6 - 10.2 mg/dL [facility] PROTEIN, TOTAL 7.5 6.1 - 8.1 g/dL [facility] ALBUMIN 4.7 3.6 - 5.1 g/dL [facility] GLOBULIN 2.8 1.9 - 3.7 g/dL (calc) [facility] ALBUMIN/GLOBUL IN RATIO 1.7 1.0 - 2.5 (calc) [facility] BILIRUBIN, TOTAL 0.3 0.2 - 1.2 mg/dL [facility] ALKALINE PHOSPHATASE 85 31 - 125 U/L [facility] AST 24 10 - 30 U/L [facility] ALT 25 6 - 29 U/L [facility] Blood Blood / Unknown 07/19/2020 3 :29 PM EDT 07/19/2020 3:29 PM EDT Kimmy Valdovinos PA-C LAB - BLOOD DRAW Edited Result - Final [facility] [address] [address], [facility] [address] [address] from Last 3 Months or Most Recently Relevant to Health Maintenance Care Teams Tooth Clerk Relationship Specialty Start Date End Date Bailey Islas FNP-C [address] [place] [address] PCP - General 10/29/21
[2024-10-09] MEDS: cefEPime HCl/D5W 2 GM/50 ML PIGGYBACK IV (19:58)
--- NOTE | 2024-10-09 20:12 | PC.NURSE ---
Patient is a 48 year old female who is alert and oriented x 4. Patient stating her daughters cat had bit her bilaterally on her hands. Patient stating the event happened yesterday in her house, and then she put the cat outside. Went and got a TDAP for cat bites and abx. Patient stating her hands started to swell this morning noticeably. Stating her hands were not this bad before. Started IV abx, given IV 20 g in L AC. Patient tolerated the procedure well. Verified abx does not have penicillin due to allergy.Answered all patient questions. Family at bedside stating some are due to go home, and one will return as mothers support person. Patients plan of care ongoing...
[2024-10-09 20:18] VITALS: BP 141/93; PULSE 79; RESP 18; TEMP 37.1; O2SAT 96
--- NOTE | 2024-10-09 20:56 | PM.IMHP ---
History of Present Illness Date of Service: 10/09/24 Chief Complaint: Cat bite 48-year-old female with a past medical history of asthma who presented to the hospital with a chief complaint of cat bite. Patient mentioned that her cat bite her on 10/08 am on her left arm and face. Followed by she noted swelling of the left hand and subsequently came to the ER for further evaluation. In the ER patient noted to have cat bites on her left hand, wrist and side of the face. No deep wounds. No surrounding cellulitis. Patient was empirically given doxycycline and Flagyl for prophylaxis and subsequently discharged home. After she went home she noticed increased swelling on her left hand sensory presented back to the hospital. Denies any fevers. Reports because of the swelling she has difficulty extending the fingers. Patient denies any chest pain or palpitations. Review of all other systems is negative except mentioned above ER course: Per ER team, patient noted to have swelling of the dorsum of the hands. Extension of the fingers are slightly limited because of the swelling. No surrounding erythema. X-ray showed no evidence of foreign body or gas. ER team discussed with Dr. More who said admitted to medicine service and continue antibiotics and will see the patient in the morning. PMFSH Social History Household Members: Family Housing: House Do you presently have visiting nurse or other home services: No Alcohol intake: former Patient Tobacco Use Status: Never used Tobacco Tobacco use type: Cigarette Cigarettes Per Day: 3 Years Smoked: 15 e-Cigarette/Vaping Use: Never Used Patient Interested in Nicotine Replacement: Yes (pt requesting nicotine patch) Patient Given Instructions on How to Stop Smoking: Yes Date Education Initiated: 10/09/24 Currently Displaying Signs/Symptoms of Drug Intoxication Withdrawal: No Have you been hit, kicked, punched, or otherwise hurt by someone within the past year? If so, by whom?: No Do you feel safe in your current relationship?: No Current Relationship Is there a partner from a previous relationship who is making you feel unsafe now?: No Are you made to feel afraid or neglected: No [employer] Healthcare Practices: [employer] Advance Directives: No Advance Directives Information Provided: Yes Do you have a plan to hurt others: No Plan Recently lost weight without trying: No Eating poorly because of decreased appetite: No Nutrition Risks: No Nutritional Risk Patient : No : No Poor oral hygiene: No service: No Meds Allergies Allergy/AdvReac Type Severity Reaction Status Date / Time Penicillins (PCN) Allergy Unknown Verified 10/09/24 16:00 Active Medications: Current Medications Acetaminophen (Acetaminophen 325 Mg Tablet) 650 mg PO Q6H PRN PRN Reason: Pain, Mild 1-3,fever,headache Enoxaparin Sodium (Enoxaparin Sodium 40 Mg/0.4 Ml Syringe) 40 mg SUBCUT Q24H [facility] Hydromorphone HCl (Hydromorphone Hcl 1 Mg/Ml Syringe) 0.5 mg IVPUSH Q4H PRN; Protocol PRN Reason: Pain, Severe (Pain Scale 7-10) Lactated Ringer's (Lr) 1,000 mls @ 100 mls/hr IVCONT .Q10H [facility] Magnesium Hydroxide (Milk Of Magnesia 30 Ml Oral.Susp) 30 ml PO DAILY PRN PRN Reason: Constipation Home Medications ?Medication ?Instructions ?Recorded ?Confirmed ?Last Taken ?Type ferrous sulfate 325 mg (65 mg 325 mg PO DAILY 10/09/24 10/09/24 10/08/24 History iron) tablet ibuprofen 125 mg-acetaminophen 250 2 tab PO Q8H PRN Pain 10/09/24 10/09/24 Unknown History mg tablet (Dual Action Pain Reliever) loratadine 10 mg tablet (Claritin) 10 mg PO DAILY 10/09/24 10/09/24 10/08/24 History isfbghmi-tiu-atdy-FA-Ca carb-vit K 1 tab PO DAILY 10/09/24 10/09/24 10/08/24 History 18 mg iron-400 mcg-500 mg tablet Physical Exam Vital Signs and Narrative: Vital Signs: Last Vital Signs Temp 98.7 F 10/09/24 20:18 Pulse 79 10/09/24 20:18 Resp 18 10/09/24 20:18 BP 141/93 H 10/09/24 20:18 Pulse Ox 96 10/09/24 20:18 O2 Del Method Room Air 10/09/24 20:18 BMI result Body Mass Index 25.6 Results Labs 10/10/24 05:40 10/10/24 05:40 Labs: Laboratory Results - last 24 hr 10/09/24 16:52 MCV 89.2 MCH 31.1 MCHC 34.9 RDW 14.4 Plt Count 218 MPV 9.4 Immature Gran % (Auto) 0.5 H Neut % (Auto) 79.4 H Lymph % (Auto) 9.9 L [place] % (Auto) 8.2 Eos % (Auto) 1.7 Baso % (Auto) 0.3 Lymph # (Auto) 1.1 L [place] # (Auto) 0.9 Eos # (Auto) 0.2 Baso # (Auto) 0.0 Abs Immat Gran (auto) 0.06 H Absolute Neuts (auto) 9.1 H Absolute Nucleated RBC 0.000 Nucleated RBC % (auto) 0.0 ESR 23 H Anion Gap 12 Estim Creat Clear Calc 69.9 Estimated GFR > 60 Random Glucose 128 H Lactic Acid 1.3 Calcium 9.0 Total Bilirubin 0.5 AST 38 H ALT 37 H Alkaline Phosphatase 101 C-Reactive Protein 9.88 H Total Protein 7.4 Albumin 4.5 Assessment and Plan (1) Cellulitis of hand, left: Status: Acute Plan 48-year-old female with a past medical history of asthma who presented to the hospital with a chief complaint of cat bite on the left hand and face. Noted to have swelling of the b/l hand. b/l hand cellulitis: Cat bite: Noted puncture wounds. No surrounding erythema. X-ray negative. Orthopedics team was notified. Pain control Continue cefepime and Flagyl Patient reports that cat is not vaccinated. Spoke to Dr. Peter-suggested that if the cat is not observable for 10 days or if bit unprovoked patient might need a rabies vaccine and rabies immunoglobulin around the wound. Patient mentioned that cat is not abservable as it ran out of the house. And Cat also bit her suddenly. Explained to the patient the need for rabies vaccine-patient agreeable for rabies vaccine and rabies immunoglobulin. Patient received 1st dose of rabies vaccine as well as globulin at the time of admission. Patient received tetanus shot on 10/08 in the ER. Tobacco dependence: Offered nicotine patch. Hypothyroidism: Reports that she ran out of levothyroxine and has not been taken since June. Will check TSH. And resume levothyroxine. DVT prophylaxis: Lovenox Code status: Full code Quality Stroke Does the patient have a stroke diagnosis?: No VTE Prior VTE?: No VTE Risk Level:: Medical - moderate - high VTE Device Contraindication: Treatment Not Indicated VTE Drug Contraindication: N/A - Med Ordered
--- NOTE | 2024-10-09 21:23 | PHA.MEDREC ---
Addendum entered by Jennifer Child [facility] 10/09/24 21:29: REVIEWED Original Note: Pharmacy Consult ? Medication Reconciliation Pharmacy has completed the medication reconciliation. Spoke with pt and she confirmed her medications. Pt confirmed she started the Doxycycline and Metrondiazole yesterday from [facility] ([facility] [phone]) and took them last this morning at 1140; I called [facility] and they confirmed the pt picked it up yesterday 10/08.
[2024-10-09] MEDS: metroNIDAZOLE/NS 500 MG/100 ML PIGGYBACK 100 MG IV (21:24)
[2024-10-09 22:14] VITALS: BMI 30.5
[2024-10-09 22:34] VITALS: BP 139/81; PULSE 84; RESP 16; TEMP 36.6; O2SAT 96
[2024-10-09] MEDS: Lactated Ringers 1,000 ML 100 ML IVCONT (22:40)
[2024-10-09] MEDS: Nicotine 14 MG PATCH.TD24 TRANSDERMA (23:01)
[2024-10-09 23:39] LABS: Thyroid Stimulating Hormone > 100.00 uIU/mL (0.32-4.0)
[2024-10-09 23:51] VITALS: BP 138/78; PULSE 76; RESP 16; TEMP 36.3; O2SAT 96
[2024-10-10] MEDS: Rabies Immune Globulin/PF 900 UNIT/3 ML VIAL 1512 UNIT IM (00:06)
[2024-10-10] MEDS: Rabies Vaccine (PCEC)/PF 1 ML VIAL IM (00:27)
--- NOTE | 2024-10-10 02:23 | PC.NURSE ---
Pt received rabies vaccination to left gluteus pedro also received Immunoglobulin sc to areas on left and right hand and right face by and PA.
[2024-10-10 03:31] VITALS: BP 119/64; PULSE 70; RESP 14; TEMP 36.2; O2SAT 95
[2024-10-10] MEDS: cefEPime HCl/D5W 2 GM/50 ML PIGGYBACK IV ×3 (04:41→21:21)
[2024-10-10] MEDS: metroNIDAZOLE/NS 500 MG/100 ML PIGGYBACK 100 MG IV ×3 (05:27→21:48)
[2024-10-10 06:02] LABS: MANUAL DIFF FLAG NO
[2024-10-10 06:27] LABS: Anion Gap 13 (12-20); Blood Urea Nitrogen 11 mg/dL (9-16); Calcium 9.1 mg/dL (8.4-10.2); Carbon Dioxide 21 mmol/L (22-29); Chloride 107 mmol/L (96-108); Creatinine Clr Calc Pharmacy 81.6; Estimated Glomerular Filt Rate > 60; Potassium 3.8 mmol/L (3.3-5.1); Sodium 137 mmol/L (135-145)
[2024-10-10 06:59] LABS: Hematocrit 36.7 % (37.0-47.0); Hemoglobin 12.5 g/dl (12.0-16.0); Imm Gran Abs Auto 0.05 X10*3/uL (0.00-0.03); Imm Gran Pct Auto 0.5 % (0.0-0.4); Lymphocytes Absolute Auto 1.7 X10*3/uL (1.2-4.9); Mean Corpuscular HGB Conc 34.1 g/dl (31.0-35.0); Mean Corpuscular Hemoglobin 31.1 pg (27.0-33.0); Mean Corpuscular Volume 91.3 fL (80.0-98.0); NRBC Abs Auto 0.000 X10*3/uL (0.0-0.012); NRBC Pct Auto 0.0 /100WBC (0.0-0.2); Platelet Count 232 X10*3/uL (160-400); Red Blood Count 4.02 X10*6/uL (4.20-5.50); White Blood Count 9.1 X10*3/uL (4.8-10.8)
[2024-10-10 07:39] VITALS: BP 142/84; PULSE 70; RESP 18; TEMP 36.3; O2SAT 95
[2024-10-10] MEDS: Nicotine 14 MG PATCH.TD24 TRANSDERMA (08:02)
--- NOTE | 2024-10-10 08:02 | PM.CNOR ---
History of Present Illness HPI Consult date: 10/10/24 Chief complaint: cellulitis Narrative: 48-year-old female admitted to the medical service after sustaining a cat bite to both hands. She states her daughter's cat was about to go outside when she went to stop the care and it attacked her. She was seen in the emergency department on 10/08/2024 where she was started on cefepime and Flagyl. She was discharged home and returned the following day on 10/09 due to worsening pain and swelling. Orthopedics was consulted for her recommendations. Review of Systems Review of Systems: Yes all other systems are reviewed and are negative [facility] Social History Social History Household Members: Family Housing: House Do you presently have visiting nurse or other home services: No Alcohol intake: former Patient Tobacco Use Status: Never used Tobacco Tobacco use type: Cigarette Cigarettes Per Day: 3 Years Smoked: 15 e-Cigarette/Vaping Use: Never Used Patient Interested in Nicotine Replacement: Yes (pt requesting nicotine patch) Patient Given Instructions on How to Stop Smoking: Yes Date Education Initiated: 10/09/24 Currently Displaying Signs/Symptoms of Drug Intoxication Withdrawal: No Have you been hit, kicked, punched, or otherwise hurt by someone within the past year? If so, by whom?: No Do you feel safe in your current relationship?: No Current Relationship Is there a partner from a previous relationship who is making you feel unsafe now?: No Are you made to feel afraid or neglected: No Mormonism Healthcare Practices: Shinto Advance Directives: No Advance Directives Information Provided: Yes Do you have a plan to hurt others: No Plan Recently lost weight without trying: No Eating poorly because of decreased appetite: No Nutrition Risks: No Nutritional Risk Patient : No : No Poor oral hygiene: No Meds Allergies Allergy/AdvReac Type Severity Reaction Status Date / Time Penicillins (PCN) Allergy Unknown Verified 10/09/24 16:00 Active Medications: Current Medications Acetaminophen (Acetaminophen 325 Mg Tablet) 650 mg PO Q6H PRN PRN Reason: Pain, Mild 1-3,fever,headache Last Admin: 10/09/24 22:38 Dose: 650 mg Enoxaparin Sodium (Enoxaparin Sodium 40 Mg/0.4 Ml Syringe) 40 mg SUBCUT Q24H DELVIN Last Admin: 10/09/24 21:25 Dose: 40 mg Hydromorphone HCl (Hydromorphone Hcl 1 Mg/Ml Syringe) 0.5 mg IVPUSH Q4H PRN; Protocol PRN Reason: Pain, Severe (Pain Scale 7-10) Last Admin: 10/10/24 00:38 Dose: 0.5 mg Lactated Ringer's (Lr) 1,000 mls @ 100 mls/hr IVCONT .Q10H [facility] Last Admin: 10/09/24 22:40 Dose: 100 mls/hr Cefepime HCl (Maxipime) 2 gm in 50 mls @ 100 mls/hr IV Q8H [facility] Last Infusion: 10/10/24 05:26 Dose: Infused Metronidazole (Flagyl) 500 mg in 100 mls @ 100 mls/hr IV Q8H [facility] Last Infusion: 10/10/24 06:34 Dose: Infused Magnesium Hydroxide (Milk Of Magnesia 30 Ml Oral.Susp) 30 ml PO DAILY PRN PRN Reason: Constipation Nicotine (Nicotine 14 Mg Patch.Td24) 14 mg TRANSDERMA DAILY [facility] Last Admin: 10/09/24 23:01 Dose: 14 mg Home Medications ?Medication ?Instructions ?Recorded ?Confirmed ?Last Taken ?Type ferrous sulfate 325 mg (65 mg 325 mg PO DAILY 10/09/24 10/09/24 10/08/24 History iron) tablet ibuprofen 125 mg-acetaminophen 250 2 tab PO Q8H PRN Pain 10/09/24 10/09/24 Unknown History mg tablet (Dual Action Pain Reliever) loratadine 10 mg tablet (Claritin) 10 mg PO DAILY 10/09/24 10/09/24 10/08/24 History amtxnkfs-btx-yrae-FA-Ca carb-vit K 1 tab PO DAILY 10/09/24 10/09/24 10/08/24 History 18 mg iron-400 mcg-500 mg tablet Physical Exam Vital Signs: Vital Signs: Last Vital Signs Temp 97.4 F 10/10/24 07:39 Pulse 70 10/10/24 07:39 Resp 18 10/10/24 07:39 BP 142/84 H 10/10/24 07:39 Pulse Ox 95 10/10/24 07:39 O2 Del Method Room Air 10/10/24 07:39 BMI result Body Mass Index 30.5 Extrem: Other: Left hand with various cat scratches on the dorsum of the hand and wrist No evidence of abscess formation on the dorsum or volar aspect of the hand. There is swelling on the dorsum of the hand No pain with passive extension of the digits No pain with axial loading of the digits or wrist She can attempt making a fist Vascularly intact Right hand with what appears to be a cat bite to his the dorsum of the index finger No abscess formation no drainage No pain with passive extension of the digits no pain with axial loading of the digits or wrist She can attempt to make a fist Neurovascularly intact Results Labs 10/10/24 05:40 10/10/24 05:40 Labs: Abnormal lab results 10/09/24 10/10/24 Range/Units 16:52 05:40 WBC 11.4 H (4.8-10.8) X10*3/uL RBC 3.89 L 4.02 L (4.20-5.50) X10*6/uL Hct 34.7 L 36.7 L (37.0-47.0) % Immature Gran % (Auto) 0.5 H 0.5 H (0.0-0.4) % Neut % (Auto) 79.4 H (45-73) % Lymph % (Auto) 9.9 L 18.4 L (20-40) % Lymph # (Auto) 1.1 L (1.2-4.9) X10*3/uL Abs Immat Gran (auto) 0.06 H 0.05 H (0.00-0.03) X10*3/uL Absolute Neuts (auto) 9.1 H (2.0-8.3) x10*3/uL ESR 23 H (0-20) MM/HR Carbon Dioxide 21 L (22-29) mmol/L Random Glucose 128 H (60-115) mg/dL AST 38 H (5-31) U/L ALT 37 H (0-31) U/L C-Reactive Protein 9.88 H (< or = 0.50) mg/dL TSH > 100.00 H (0.32-4.0) uIU/mL H & H 10/09/24 10/10/24 Range/Units 16:52 05:40 Hgb 12.1 12.5 (12.0-16.0) g/dl Hct 34.7 L 36.7 L (37.0-47.0) % All other labs normal. Assessment and Plan (1) Cellulitis of hand, left: Status: Acute (2) Cellulitis of hand, right: Status: Acute Plan X-rays are negative for foreign body At this time no evidence of abscess formation or flexor tenosynovitis. Recommendation is to continue IV antibiotics, elevation and OT for range of motion We will continue to follow No surgical intervention at this time. Procedures Date of Service Date of Service: 10/10/24
[2024-10-10] MEDS: Lactated Ringers 1,000 ML 100 ML IVCONT ×2 (08:03→17:54)
--- NOTE | 2024-10-10 09:28 | MHC.CM.PN ---
pt lives with her children is independent will not need services when dcd pts car is in parking lot dc plan home self care
--- NOTE | 2024-10-10 11:37 | HO.PM.IMPN ---
Subjective Subjective Date of Service: 10/10/24 Interval History: left hand cellulitis Review of Systems arm swelling/pain slightly improving no fevers Review of Systems: Yes all other systems are reviewed and are negative Physical Exam Exam: Exam: Appearance: Alert.? Oriented X3.? cvs: rrr, [id number] . res: clear to auscultation ,no rhonchii or wheezing abd: no rebound or guarding ,nt, bs present. ext pulses present , no cyanosis left arm swelling/pain similar. neuro: axo3 , nonfocal. Vital Signs: Vital Signs: Last Vital Signs Temp 97.4 F 10/10/24 07:39 Pulse 70 10/10/24 07:39 Resp 18 10/10/24 07:39 BP 142/84 H 10/10/24 07:39 Pulse Ox 95 10/10/24 07:39 O2 Del Method Room Air 10/10/24 07:39 BMI result Body Mass Index 30.5 Objective Data Active Medications Acetaminophen (Acetaminophen 325 Mg Tablet) 650 mg PO Q6H PRN PRN Reason: Pain, Mild 1-3,fever,headache Last Admin: 10/09/24 22:38 Dose: 650 mg Documented By: KATARZYNA Enoxaparin Sodium (Enoxaparin Sodium 40 Mg/0.4 Ml Syringe) 40 mg SUBCUT Q24H [facility] Last Admin: 10/09/24 21:25 Dose: 40 mg Documented By: JAMES Hydromorphone HCl (Hydromorphone Hcl 1 Mg/Ml Syringe) 0.5 mg IVPUSH Q4H PRN; Protocol PRN Reason: Pain, Severe (Pain Scale 7-10) Last Admin: 10/10/24 08:02 Dose: 0.5 mg Documented By: IAM Lactated Ringer's (Lr) 1,000 mls @ 100 mls/hr IVCONT .Q10H [facility] Last Admin: 10/10/24 08:03 Dose: 100 mls/hr Documented By: IAM Cefepime HCl (Maxipime) 2 gm in 50 mls @ 100 mls/hr IV Q8H [facility] Last Infusion: 10/10/24 05:26 Dose: Infused Documented By: JANAE Metronidazole (Flagyl) 500 mg in 100 mls @ 100 mls/hr IV Q8H [facility] Last Infusion: 10/10/24 06:34 Dose: Infused Documented By: JANAE Magnesium Hydroxide (Milk Of Magnesia 30 Ml Oral.Susp) 30 ml PO DAILY PRN PRN Reason: Constipation Nicotine (Nicotine 14 Mg Patch.Td24) 14 mg TRANSDERMA DAILY [facility] Last Admin: 10/10/24 08:02 Dose: 14 mg Documented By: IAM Labs 10/10/24 05:40 10/10/24 05:40 Labs: Laboratory Results - last 24 hr 10/09/24 10/10/24 16:52 05:40 MCV 89.2 91.3 MCH 31.1 31.1 MCHC 34.9 34.1 RDW 14.4 14.2 Plt Count 218 232 MPV 9.4 10.0 Immature Gran % (Auto) 0.5 H 0.5 H Neut % (Auto) 79.4 H 68.9 Lymph % (Auto) 9.9 L 18.4 L [place] % (Auto) 8.2 8.2 Eos % (Auto) 1.7 3.1 Baso % (Auto) 0.3 0.9 Lymph # (Auto) 1.1 L 1.7 [place] # (Auto) 0.9 0.8 Eos # (Auto) 0.2 0.3 Baso # (Auto) 0.0 0.1 Abs Immat Gran (auto) 0.06 H 0.05 H Absolute Neuts (auto) 9.1 H 6.3 Absolute Nucleated RBC 0.000 0.000 Nucleated RBC % (auto) 0.0 0.0 ESR 23 H Anion Gap 12 13 Estim Creat Clear Calc 69.9 81.6 Estimated GFR > 60 > 60 Random Glucose 128 H 91 Lactic Acid 1.3 Calcium 9.0 9.1 Total Bilirubin 0.5 AST 38 H ALT 37 H Alkaline Phosphatase 101 C-Reactive Protein 9.88 H Total Protein 7.4 Albumin 4.5 TSH > 100.00 H Assessment and Plan (1) Cellulitis of hand, left: Status: Acute (2) Cellulitis of hand, right: Status: Acute Assessment and Plan: 48-year-old female with a past medical history of asthma who presented to the hospital with a chief complaint of cat bite on the left hand and face. Noted to have swelling of the left hand. Left hand cellulitis: Cat bite: Noted puncture wounds. No surrounding erythema. X-ray negative. Patient reports that cat is not vaccinated. ID-suggested that if the cat is not observable for 10 days or if bit unprovoked patient might need a rabies vaccine. Patient mentioned that cat is not abservable as it ran out of the house. And Cat also bit her suddenly. Explained to the patient the need for rabies vaccine-patient agreeable for [employer] fashion. Patient received tetanus shot on 10/08 in the ER. plan: Continue cefepime and Flagyl ,pain control, ortho following- elevation and OT for range of motion,continue iv antibiotics ,blood cultures pending Tobacco dependence: Offered nicotine patch. Hypothyroidism: Reports that she ran out of levothyroxine and has not been taken since June. tsh around 100 ,added free t4. will add levothyroxine. DVT prophylaxis: Lovenox ongoing need for stay:left hand cellulitis -need iv antibiotics ,cultures pending Quality Stroke Does the patient have a stroke diagnosis?: No VTE Prior VTE?: No VTE Risk Level:: Medical - moderate - high VTE Device Contraindication: Treatment Not Indicated VTE Drug Contraindication: N/A - Med Ordered
[2024-10-10 11:51] VITALS: BP 142/75; PULSE 83; RESP 19; TEMP 36.6; O2SAT 95
[2024-10-10 12:54] LABS: Free T4 (Free Thyroxine) < 0.42 ng/dL (0.71-1.85)
--- NOTE | 2024-10-10 15:11 | HO.WOUND ---
Wound Consult: Initial 48yr old female admitted to [facility] [place] on 10/09/24 - See progress notes and H&P for detailed history. Wound consult placed for bilateral hands due to cat bite. Patient agreeable to assessment and photo documentation. Patient with cat bites and scratches to bilateral hands/wrist and forearm. all areas at this time area dry and scabbed. reports cat attacked on Wednesday, started on oral antibiotics and noted increased swelling, therefore reported to the ER. seen by ortho-see notes. Etiology: cat bite right second finger Wound Bed: dry scab Drainage / Odor: none at time of assessment, or today. Patient reports drainage yesterday Mary wound: ? No Induration, Fluctuance or Warmth noted, edema noted to finger and hand, mild erythema noted. Pain: pain noted with movement, patient doing active range of motion Goals of Treatment: ? wound healing, systemic infection treatment Etiology: cat bite left dorsal hand, wrist and forearm Wound Bed: multiple dry scabs Drainage / Odor: none at time of assessment Mary wound: ? No Induration, Fluctuance or Warmth noted, mild edema noted, no erythema noted. Pain: pain noted with movement, patient doing active range of motion Goals of Treatment: ? wound healing, systemic infection treatment. Etiology: cat scratch left inner wrist Wound Bed: dry linear scab Drainage / Odor: none at time of assessment Mary wound: ? No Induration, Fluctuance or Warmth noted, mild edema noted to hand and forearm, no erythema noted. Pain: pain noted with movement, patient doing active range of motion Goals of Treatment: ? wound healing and systemic infection treatment Recommendations: 1. Turn and Reposition every 2 hours and as needed for patient comfort. Use pillows or wedges to support off loading positions. 2. Off Load all bony prominences with use of pillows and heel boots if needed. Apply Preventative foams where needed. 3. Monitor for incontinence and moisture control, use barrier creams when needed for prevention and treatment. 4. Provide adequate and supplemental nutrition. 5. Order or Continue low air loss mattress. 6. When applicable maintain blood glucose levels per Providers order. bilateral hand/wrists: leave open to air, if wounds open or begin to drain will consider topical treatment. Re-consult wound care Nurse for wound deterioration or wound changes.
[2024-10-10 15:52] VITALS: BP 145/89; PULSE 86; RESP 18; TEMP 36.6; O2SAT 86
[2024-10-10 18:52] VITALS: BP 141/89; PULSE 84; RESP 19; TEMP 37.2; O2SAT 95
[2024-10-10 23:36] VITALS: BP 128/75; PULSE 79; RESP 16; TEMP 36.2; O2SAT 94
[2024-10-11 02:43] VITALS: BP 149/85; PULSE 53; RESP 16; TEMP 36.3; O2SAT 96
[2024-10-11] MEDS: cefEPime HCl/D5W 2 GM/50 ML PIGGYBACK IV ×2 (04:40→12:09)
[2024-10-11] MEDS: Lactated Ringers 1,000 ML 100 ML IVCONT (04:41)
[2024-10-11] MEDS: metroNIDAZOLE/NS 500 MG/100 ML PIGGYBACK 100 MG IV ×2 (05:24→13:23)
[2024-10-11 07:45] VITALS: BP 136/81; PULSE 77; RESP 18; TEMP 36; O2SAT 95
--- NOTE | 2024-10-11 08:48 | PM.PNORT ---
Subjective Subjective Date of Service: 10/11/24 Interval history: Patient is a 48-year-old female admitted to the hospital for cellulitis and swelling of bilateral hands after multiple cat bites and scratches Today, the patient reports that her pain, swelling, and range of motion have all improved significantly from previous evaluation Patient reports she is able to get close to making a closed fist with both hands, and was unable to do this yesterday Patient expresses concern that the range of motion of her right index finger is still significantly limited, and this digit does still appear more swollen than the rest, however there is a laceration on the dorsal aspect of the this digit Denies numbness or tingling in bilateral upper extremities Denies drainage from any wounds No acute events overnight No other acute complaints or concerns at this time Physical Exam Vital Signs: Vital Signs: Last Vital Signs Temp 96.8 F 10/11/24 07:45 Pulse 77 10/11/24 07:45 Resp 18 10/11/24 07:45 BP 136/81 10/11/24 07:45 Pulse Ox 95 10/11/24 07:45 O2 Del Method Room Air 10/11/24 07:45 BMI result Body Mass Index 30.5 Extrem: Other: Left hand with various cat scratches on the dorsum of the hand and wrist No evidence of abscess formation on the dorsum or volar aspect of the hand. There is swelling on the dorsum of the hand No pain with passive extension of the digits No pain with axial loading of the digits or wrist She can attempt making a fist Vascularly intact Right hand with what appears to be a cat bite to his the dorsum of the index finger No abscess formation no drainage No pain with passive extension of the digits no pain with axial loading of the digits or wrist She can attempt to make a fist, range of motion of the index finger is more limited than the other digits of the right hand Neurovascularly intact Procedures Date of Service Date of Service: 10/11/24 Progress Note: A&P Assessment and plan (1) Cellulitis of hand, left: Status: Acute (2) Cellulitis of hand, right: Status: Acute Plan 1. Cellulitis of bilateral hands Improving with IV antibiotics Continue IV antibiotics OT for range of motion and gentle strengthening of bilateral hands Continue monitoring for signs of abscess formation or drainage No acute surgical indication based on exam today Orthopedics will continue to monitor Time Spent With Patient Time: Total time managing care of this patient today ____ minutes. Quality Stroke Does the patient have a stroke diagnosis?: No VTE Prior VTE?: No VTE Risk Level:: Medical - moderate - high VTE Device Contraindication: Treatment Not Indicated VTE Drug Contraindication: N/A - Med Ordered
[2024-10-11] MEDS: Nicotine 14 MG PATCH.TD24 TRANSDERMA (09:08)
[2024-10-11] MEDS: Ferrous Sulfate 324 MG TABLET.DR PO (09:09)
[2024-10-11 12:00] VITALS: BP 131/87; PULSE 84; RESP 18; TEMP 36; O2SAT 96
--- NOTE | 2024-10-11 12:23 | P.PNIM_ITS ---
Subjective Subjective Date of Service: 10/11/24 Interval History: L hand less swollen, able to move fingers; no fever some itching with IV levofloxacin; changed back to IV cefepime Review of Systems Review of Systems: Yes all other systems are reviewed and are negative Physical Exam 2 Vital Signs: Vital Signs: Last Vital Signs Temp 96.8 F 10/11/24 12:00 Pulse 84 10/11/24 12:00 Resp 18 10/11/24 12:00 BP 131/87 10/11/24 12:00 Pulse Ox 96 10/11/24 12:00 O2 Del Method Room Air 10/11/24 12:00 BMI result Body Mass Index 30.5 Gen: in no acute distress HEENT: sclera anicteric, moist mucus membranes Neck: supple Lungs: clear to auscultation bilaterally Heart: regular rate and rhythm, no murmurs Abd: soft, non-tender, non-distended Skin: warm/well-perfused, L hand swollen and R 2nd finger dorsum swollen with multiple scratch salazar, no fluctuance Neuro: alert and oriented x3, no focal findings Psych: appropriate affect Objective Data Active Medications Acetaminophen (Acetaminophen 325 Mg Tablet) 650 mg PO Q6H PRN PRN Reason: Pain, Mild 1-3,fever,headache Last Admin: 10/11/24 04:46 Dose: 650 mg Documented By: DANNY Enoxaparin Sodium (Enoxaparin Sodium 40 Mg/0.4 Ml Syringe) 40 mg SUBCUT Q24H [facility] Last Admin: 10/10/24 21:21 Dose: 40 mg Documented By: DANNY Ferrous Sulfate (Ferrous Sulfate 324 Mg Tablet.) 324 mg PO DAILY [facility] Last Admin: 10/11/24 09:09 Dose: 324 mg Documented By: LEFEBVA Hydromorphone HCl (Hydromorphone Hcl 1 Mg/Ml Syringe) 0.5 mg IVPUSH Q4H PRN; Protocol PRN Reason: Pain, Severe (Pain Scale 7-10) Last Admin: 10/10/24 21:29 Dose: 0.5 mg Documented By: DANNY Metronidazole (Flagyl) 500 mg in 100 mls @ 100 mls/hr IV Q8H [facility] Last Infusion: 10/11/24 06:30 Dose: Infused Documented By: DANNY Cefepime HCl (Maxipime) 2 gm in 50 mls @ 100 mls/hr IV Q8H [facility] Last Admin: 10/11/24 12:09 Dose: 100 mls/hr Documented By: ROBERT Levothyroxine Sodium (Levothyroxine Sodium 100 Mcg Tablet) 100 mcg PO DAILY@0600 [facility] Last Admin: 10/11/24 06:01 Dose: 100 mcg Documented By: DANNY Loratadine (Loratadine 10 Mg Tablet) 10 mg PO DAILY [facility] Last Admin: 10/11/24 09:09 Dose: 10 mg Documented By: MELE Magnesium Hydroxide (Milk Of Magnesia 30 Ml Oral.Susp) 30 ml PO DAILY PRN PRN Reason: Constipation Multivitamins/Vitamin C (Multivitamin Tablet) 1 tab PO DAILY [facility] Last Admin: 10/11/24 09:09 Dose: 1 tab Documented By: MELE Nicotine (Nicotine 14 Mg Patch.Td24) 14 mg TRANSDERMA DAILY [facility] Last Admin: 10/11/24 09:08 Dose: 14 mg Documented By: MELE Ondansetron HCl (Ondansetron Hcl 4 Mg/2 Ml Vial) 4 mg IVPUSH Q6H PRN PRN Reason: Nausea and Vomiting Last Admin: 10/10/24 15:48 Dose: 4 mg Documented By: IAM Rabies Vaccine (Rabies Vaccine (Pcec)/Pf 1 Ml Vial) 1 ml IM .ONCE ONE Stop: 10/13/24 09:01 Rabies Vaccine (Rabies Vaccine (Pcec)/Pf 1 Ml Vial) 1 ml IM .ONCE ONE Stop: 10/17/24 09:01 Rabies Vaccine (Rabies Vaccine (Pcec)/Pf 1 Ml Vial) 1 ml IM .ONCE ONE Stop: 10/24/24 09:01 Labs 10/10/24 05:40 10/10/24 05:40 Labs: Laboratory Results - last 24 hr 10/10/24 05:40 Free T4 < 0.42 L Microbiology Microbiology Results: Microbiology 10/09/24 19:26 Blood Culture - Preliminary Blood - Venous No growth after 24 hours. 10/09/24 16:52 Blood Culture - Preliminary Blood - Venous No growth after 24 hours. Assessment and Plan (1) Cellulitis of hand, left: Status: Acute (2) Cellulitis of hand, right: Status: Acute Plan d3, 48yo F with asthma + hypothyroidism presenting after cat bite to L hand, multiple cat scratches L hand cellulitis R 2nd finger cellulitis - 10/09- cefepime + metronidazole, Ortho following and no operative intervention planned, ID consult, follow BCx - pt received Tdap + rabies immune globulin and is getting rabies vaccination series- next doses 10/13, 10/17, 10/24 hypothyroidism - has not taken her LT4 since June; resumed and will recheck TSH in 4 wk tobacco abuse - NRT VTE ppx - enoxaparin dispo - eventual home In my clinical judgment, the patient requires continued inpatient hospitalization for the following reasons: IV ABX Total time managing care of this patient today: 35 minutes. Quality Stroke Does the patient have a stroke diagnosis?: No VTE Prior VTE?: No VTE Risk Level:: Medical - moderate - high VTE Device Contraindication: Treatment Not Indicated VTE Drug Contraindication: N/A - Med Ordered
--- NOTE | 2024-10-11 15:34 | MHC.CM.PN ---
per rounds dc expected for thurs home n/s
[2024-10-11 15:49] VITALS: BP 155/86; PULSE 78; RESP 18; TEMP 36; O2SAT 98
--- NOTE | 2024-10-11 15:58 | P.CNID_ITS ---
History of Present Illness Data of Consult Service Date: 10/11/24 Requesting physician: Tahir Whitley Primary Care Provider: None Physician HPI Reason for consult: hand cellulitis post cat attack She presents on 10/09 with discomfort right more than left hand after cat bit and scratched her on face and hands. She was given Doxycycline and metronidazole when initially presented and came back to ER after worsening symptoms next day. She has no fever or chills Hand is improving. Review of Systems 2 Review of Systems: Yes all other systems are reviewed and are negative [facility] Family History Family history: reviewed and not pertinent Social History Social History Household Members: Family Housing: House Do you presently have visiting nurse or other home services: No Alcohol intake: former Patient Tobacco Use Status: Never used Tobacco Tobacco use type: Cigarette Cigarettes Per Day: 3 Years Smoked: 15 e-Cigarette/Vaping Use: Never Used Patient Interested in Nicotine Replacement: Yes (pt requesting nicotine patch) Patient Given Instructions on How to Stop Smoking: Yes Date Education Initiated: 10/09/24 Currently Displaying Signs/Symptoms of Drug Intoxication Withdrawal: No Have you been hit, kicked, punched, or otherwise hurt by someone within the past year? If so, by whom?: No Do you feel safe in your current relationship?: No Current Relationship Is there a partner from a previous relationship who is making you feel unsafe now?: No Are you made to feel afraid or neglected: No [employer] Healthcare Practices: [employer] Advance Directives: No Advance Directives Information Provided: Yes Do you have a plan to hurt others: No Plan Recently lost weight without trying: No Eating poorly because of decreased appetite: No Nutrition Risks: No Nutritional Risk Patient : No : No Poor oral hygiene: No service: No Meds Allergies Allergy/AdvReac Type Severity Reaction Status Date / Time Penicillins (PCN) Allergy Unknown Verified 10/09/24 16:00 Active Medications: Current Medications Acetaminophen (Acetaminophen 325 Mg Tablet) 650 mg PO Q6H PRN PRN Reason: Pain, Mild 1-3,fever,headache Last Admin: 10/11/24 04:46 Dose: 650 mg Enoxaparin Sodium (Enoxaparin Sodium 40 Mg/0.4 Ml Syringe) 40 mg SUBCUT Q24H [facility] Last Admin: 10/10/24 21:21 Dose: 40 mg Ferrous Sulfate (Ferrous Sulfate 324 Mg Tablet.Dr) 324 mg PO DAILY [facility] Last Admin: 10/11/24 09:09 Dose: 324 mg Hydromorphone HCl (Hydromorphone Hcl 1 Mg/Ml Syringe) 0.5 mg IVPUSH Q4H PRN; Protocol PRN Reason: Pain, Severe (Pain Scale 7-10) Last Admin: 10/10/24 21:29 Dose: 0.5 mg Metronidazole (Flagyl) 500 mg in 100 mls @ 100 mls/hr IV Q8H [facility] Last Infusion: 10/11/24 14:59 Dose: Infused Cefepime HCl (Maxipime) 2 gm in 50 mls @ 100 mls/hr IV Q8H [facility] Last Infusion: 10/11/24 13:09 Dose: Infused Levothyroxine Sodium (Levothyroxine Sodium 100 Mcg Tablet) 100 mcg PO DAILY@0600 [facility] Last Admin: 10/11/24 06:01 Dose: 100 mcg Loratadine (Loratadine 10 Mg Tablet) 10 mg PO DAILY [facility] Last Admin: 10/11/24 09:09 Dose: 10 mg Magnesium Hydroxide (Milk Of Magnesia 30 Ml Oral.Susp) 30 ml PO DAILY PRN PRN Reason: Constipation Multivitamins/Vitamin C (Multivitamin Tablet) 1 tab PO DAILY [facility] Last Admin: 10/11/24 09:09 Dose: 1 tab Nicotine (Nicotine 14 Mg Patch.Td24) 14 mg TRANSDERMA DAILY [facility] Last Admin: 10/11/24 09:08 Dose: 14 mg Ondansetron HCl (Ondansetron Hcl 4 Mg/2 Ml Vial) 4 mg IVPUSH Q6H PRN PRN Reason: Nausea and Vomiting Last Admin: 10/10/24 15:48 Dose: 4 mg Rabies Vaccine (Rabies Vaccine (Pcec)/Pf 1 Ml Vial) 1 ml IM .ONCE ONE Stop: 10/13/24 09:01 Rabies Vaccine (Rabies Vaccine (Pcec)/Pf 1 Ml Vial) 1 ml IM .ONCE ONE Stop: 10/17/24 09:01 Rabies Vaccine (Rabies Vaccine (Pcec)/Pf 1 Ml Vial) 1 ml IM .ONCE ONE Stop: 10/24/24 09:01 Home Medications ?Medication ?Instructions ?Recorded ?Confirmed ?Last Taken ?Type ferrous sulfate 325 mg (65 mg 325 mg PO DAILY 10/09/24 10/09/24 10/08/24 History iron) tablet ibuprofen 125 mg-acetaminophen 250 2 tab PO Q8H PRN [place] in 10/09/24 10/09/24 Unknown History mg tablet (Dual Action Pain Reliever) loratadine 10 mg tablet (Claritin) 10 mg PO DAILY 09/1610/09/24 10/08/24 History [id number]-Ca carb-vit K 1 tab PO DAILY 09/1610/09/24 10/08/24 History 18 mg iron-400 mcg-500 mg tablet Physical Exam 2 Vital Signs: Vital Signs: Last Vital Signs Temp 96.8 F 10/11/24 15:49 Pulse 78 10/11/24 15:49 Resp 18 10/11/24 15:49 BP 155/86 H 10/11/24 15:49 Pulse Ox 98 10/11/24 15:49 O2 Del Method Room Air 10/11/24 15:49 BMI result Body Mass Index 30.5 Const: General: cooperative HEENT: Head: Yes normal to inspection Face and sinus: Yes normal facial exam Mouth: Normal oral and palatal mucosa present Teeth and gingiva: d entition normal Eyes: General: appearance normal, both eyes and all related structures P upils: Equal, round and reactive pupils present Resp: Effort & Inspection: normal respiratory effort Cardio: Rate: regular rate Rhythm: regular rhythm GI: Palpation (GI): Soft to palpation and nontender : General: Yes no CVA tenderness Back/Spine/Pelvis: Back: no CVA tenderness Skin: General skin exam: no rashes or lesions noted Neuro: General: moves all extremities Cranial nerves: Yes Equal, round and reactive pupils present Extrem: Other: right hand swelling ,no cellulitis,left hand no cellulitis Psych: Appearance: grossly normal Results Labs 10/10/24 05:40 10/10/24 05:40 Microbiology Microbiology Results: Microbiology 10/09/24 19:26 Blood - Venous Blood Culture - Preliminary No growth after 24 hours. 10/09/24 16:52 Blood - Venous Blood Culture - Preliminary No growth after 24 hours. Assessment and Plan (1) Cellulitis of hand, left: Status: Acute (2) Cellulitis of hand, right: Status: Acute Plan She has been on Cefepime and Flagyl. She has bad rash to penicillin. 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 Clindamycin can also cover anerobes and gram positive Can switch to Levaquin and Clindamycin for one week.
--- NOTE | 2024-10-11 16:09 | PM.EVENT ---
Event Note Date of Service: 10/11/24 Event Note: She received tetanus shot. She received rabies immunoglobulin and should receive full rabies shot series since cat not available for viewing for 10 days ?removed from property Time Spent With Patient Time: Total time managing care of this patient today ____ minutes.
[2024-10-11 19:02] VITALS: BP 168/95; PULSE 87; RESP 20; TEMP 36.6; O2SAT 97
[2024-10-11 23:29] VITALS: BP 134/83; PULSE 79; RESP 18; TEMP 36.1; O2SAT 98
[2024-10-12 04:00] VITALS: BP 132/85; PULSE 73; RESP 18; TEMP 36.2; O2SAT 96
[2024-10-12 07:27] VITALS: BP 134/92; PULSE 84; RESP 18; TEMP 36.3; O2SAT 97
--- NOTE | 2024-10-12 07:31 | PM.PNORT ---
Subjective Subjective Date of Service: 10/12/24 Interval history: Patient is a 48-year-old female admitted to the hospital for cellulitis and swelling of bilateral hands after multiple cat bites and scratches Today, the patient reports that her pain, swelling, and range of motion have all improved significantly from previous evaluation Patient reports she is able to get close to making a closed fist with both hands, and was unable to do this yesterday Patient expresses concern that the range of motion of her right index finger is still limited although it has improved since yesterday, and this digit does still appear more swollen than the rest, however there is a laceration on the dorsal aspect of the this digit Denies numbness or tingling in bilateral upper extremities Denies drainage from any wounds No acute events overnight No other acute complaints or concerns at this time Physical Exam Vital Signs: Vital Signs: Last Vital Signs Temp 97.4 F 10/12/24 07:27 Pulse 84 10/12/24 07:27 Resp 18 10/12/24 07:27 BP 134/92 H 10/12/24 07:27 Pulse Ox 97 10/12/24 07:27 O2 Del Method Room Air 10/12/24 07:27 BMI result Body Mass Index 30.5 Extrem: Other: Left hand with various cat scratches on the dorsum of the hand and wrist No evidence of abscess formation on the dorsum or volar aspect of the hand. There is swelling on the dorsum of the hand No pain with passive extension of the digits No pain with axial loading of the digits or wrist She can attempt making a fist Vascularly intact Right hand with what appears to be a cat bite to his the dorsum of the index finger No tenderness to palpation of the flexor tendon of the index finger No abscess formation no drainage No pain with passive extension of the digits no pain with axial loading of the digits or wrist She can attempt to make a fist, range of motion of the index finger has improved significantly since yesterday Neurovascularly intact Procedures Date of Service Date of Service: 10/12/24 Progress Note: A&P Assessment and plan (1) Cellulitis of hand, left: Status: Acute (2) Cellulitis of hand, right: Status: Acute Plan 1. Cellulitis of bilateral hands Improving with IV antibiotics Continue IV antibiotics OT for range of motion and gentle strengthening of bilateral hands Continue monitoring for signs of abscess formation or drainage No acute surgical indication based on exam today Time Spent With Patient Time: Total time managing care of this patient today ____ minutes. Quality Stroke Does the patient have a stroke diagnosis?: No VTE Prior VTE?: No VTE Risk Level:: Medical - moderate - high VTE Device Contraindication: Treatment Not Indicated VTE Drug Contraindication: N/A - Med Ordered
[2024-10-12] MEDS: Nicotine 14 MG PATCH.TD24 TRANSDERMA (08:06)
[2024-10-12] MEDS: Ferrous Sulfate 324 MG TABLET.DR PO (08:06)
--- NOTE | 2024-10-12 10:49 | PM.DS ---
DS: Providers Provider Date of Service: 10/12/24 Date of admission: 10/09/24 20:52 Date of discharge: 10/12/24 Primary care physician: None Physician Consults: 10/09/24 20:51 Consult to Infectious Diseases Routine Consulting Provider: [facility] Reason for consultation: cellulitis; cat bite Consult to Orthopedics Routine Consulting Provider: [facility] Reason for consultation: Cat bite; Cellulitis; ?tenosinuvitis 10/09/24 23:23 Consult to Wound Care Routine Reason for consultation: cellulitis from cat bite to left hand DS: Diagnosis Discharge Diagnosis (1) Cellulitis of hand, left: Status: Acute (2) Cellulitis of hand, right: Status: Acute (3) Cat bite: Status: Acute (4) Hypothyroid: Status: Acute DS: Summary Hospital Course Hospital Course: From the history and physical by the admitting hospitalist, Titus Rao 10/09/24: 48-year-old female with a past medical history of asthma who presented to the hospital with a chief complaint of cat bite. Patient mentioned that her cat bite her on 10/08 am on her left arm and face. Followed by she noted swelling of the left hand and subsequently came to the ER for further evaluation. In the ER patient noted to have cat bites on her left hand, wrist and side of the face. No deep wounds. No surrounding cellulitis. Patient was empirically given doxycycline and Flagyl for prophylaxis and subsequently discharged home. After she went home she noticed increased swelling on her left hand sensory presented back to the hospital. Denies any fevers. Reports because of the swelling she has difficulty extending the fingers. Patient denies any chest pain or palpitations. Review of all other systems is negative except mentioned above ER course: Per ER team, patient noted to have swelling of the dorsum of the hands. Extension of the fingers are slightly limited because of the swelling. No surrounding erythema. X-ray showed no evidence of foreign body or gas. ER team discussed with Dr. More who said admitted to medicine service and continue antibiotics and will see the patient in the morning. 48yo F with asthma + hypothyroidism presenting after cat bite to L hand and R 2nd finger with multiple cat scratches, admitted to the medical-surgical unit with Orthopedics and Infectious Disease consultation for concern of Pasteurella multocida infection. No operative intervention performed and she improved clinically with IV cefepime and metronidazole. She was also given Tdap and rabies immune globulin and started the rabies vaccination series. She was discharged on clindamycin plus doxycycline. Blood cultures negative. She will follow up with [facility] as well as OT for hand therapy. Notably, she has not taken her levothyroxine since June and TSH was >100; she was prescribed 100 mcg/d levothyroxine and will recheck TSH in 4 weeks. She was also encouraged to establish primary care LETICIA. She will need to return to the hospital to complete the rabies vaccines series 10/13, 10/17, and 10/24/24. Time Attestation Discharge Coordination Time (in mins): 40 Quality: Safe Use of Opioids Does Pt have an Active Cancer Diagnosis on the Problem List?: No Quality: Stroke Does the patient have a stroke diagnosis?: No Physical Exam Vital Signs: Vital Signs: Last Vital Signs Temp 97.4 F 10/12/24 07:27 Pulse 84 10/12/24 07:27 Resp 18 10/12/24 07:27 BP 134/92 H 10/12/24 07:27 Pulse Ox 97 10/12/24 07:27 O2 Del Method Room Air 10/12/24 07:27 BMI result Body Mass Index 30.5 Gen: in no acute distress HEENT: sclera anicteric, moist mucus membranes Neck: supple Lungs: clear to auscultation bilaterally Heart: regular rate and rhythm, no murmurs Abd: soft, non-tender, non-distended Skin: warm/well-perfused, L hand swollen and R 2nd finger dorsum swollen with multiple scratch and bite salazar, no fluctuance Neuro: alert and oriented x3, no focal findings Psych: appropriate affect Extrem: Other: Left hand with various cat scratches on the dorsum of the hand and wrist No evidence of abscess formation on the dorsum or volar aspect of the hand. There is swelling on the dorsum of the hand No pain with passive extension of the digits No pain with axial loading of the digits or wrist She can attempt making a fist Vascularly intact Right hand with what appears to be a cat bite to his the dorsum of the index finger No tenderness to palpation of the flexor tendon of the index finger No abscess formation no drainage No pain with passive extension of the digits no pain with axial loading of the digits or wrist She can attempt to make a fist, range of motion of the index finger has improved significantly since yesterday Neurovascularly intact DS: Data Data Completed and Pending Completed studies during hospitalization [Text1]: Laboratory Results WBC 9.1 X10*3/uL (4.8-10.8) 10/10/24 05:40 RBC 4.02 X10*6/uL (4.20-5.50) L 10/10/24 05:40 Hgb 12.5 g/dl (12.0-16.0) 10/10/24 05:40 Hct 36.7 % (37.0-47.0) L 10/10/24 05:40 MCV 91.3 fL (80.0-98.0) 10/10/24 05:40 MCH 31.1 pg (27.0-33.0) 10/10/24 05:40 MCHC 34.1 g/dl (31.0-35.0) 10/10/24 05:40 RDW 14.2 % (11.0-16.0) 10/10/24 05:40 Plt Count 232 X10*3/uL (160-400) 10/10/24 05:40 MPV 10.0 fL (9.4-12.3) 10/10/24 05:40 Immature Gran % (Auto) 0.5 % (0.0-0.4) H 10/10/24 05:40 Neut % (Auto) 68.9 % (45-73) 10/10/24 05:40 Lymph % (Auto) 18.4 % (20-40) L 10/10/24 05:40 Mccreary % (Auto) 8.2 % (2-11) 10/10/24 05:40 Eos % (Auto) 3.1 % (0-4) 10/10/24 05:40 Baso % (Auto) 0.9 % (0-2) 10/10/24 05:40 Lymph # (Auto) 1.7 X10*3/uL (1.2-4.9) 10/10/24 05:40 Mccreary # (Auto) 0.8 X10*3/uL (0.1-1.2) 10/10/24 05:40 Eos # (Auto) 0.3 X10*3/uL (0.0-0.4) 10/10/24 05:40 Baso # (Auto) 0.1 X10*3/uL (0.0-0.2) 10/10/24 05:40 Abs Immat Gran (auto) 0.05 X10*3/uL (0.00-0.03) H 10/10/24 05:40 Absolute Neuts (auto) 6.3 x10*3/uL (2.0-8.3) 10/10/24 05:40 Absolute Nucleated RBC 0.000 X10*3/uL (0.0-0.012) 10/10/24 05:40 Nucleated RBC % (auto) 0.0 /100WBC (0.0-0.2) 10/10/24 05:40 ESR 23 MM/HR (0-20) H 10/09/24 16:52 Sodium 137 mmol/L (135-145) 10/10/24 05:40 Potassium 3.8 mmol/L (3.3-5.1) 10/10/24 05:40 Chloride 107 mmol/L (96-108) 10/10/24 05:40 Carbon Dioxide 21 mmol/L (22-29) L 10/10/24 05:40 Anion Gap 13 (12-20) 10/10/24 05:40 BUN 11 mg/dL (9-16) 10/10/24 05:40 Creatinine 0.82 mg/dL (0.5-1.4) 10/10/24 05:40 Estim Creat Clear Calc 81.6 10/10/24 05:40 Estimated GFR > 60 10/10/24 05:40 Random Glucose 91 mg/dL (60-115) 10/10/24 05:40 Lactic Acid 1.3 mmol/L (0.5-2.0) 10/09/24 16:52 Calcium 9.1 mg/dL (8.4-10.2) 10/10/24 05:40 Total Bilirubin 0.5 mg/dL (0.0-1.0) 10/09/24 16:52 AST 38 U/L (5-31) H 10/09/24 16:52 ALT 37 U/L (0-31) H 10/09/24 16:52 Alkaline Phosphatase 101 U/L (39-117) 10/09/24 16:52 C-Reactive Protein 9.88 mg/dL (< or = 0.50) H 10/09/24 16:52 Total Protein 7.4 g/dL (6.5-8.0) 10/09/24 16:52 Albumin 4.5 g/dL (3.5-5.0) 10/09/24 16:52 TSH > 100.00 uIU/mL (0.32-4.0) H 10/09/24 16:52 Free T4 < 0.42 ng/dL (0.71-1.85) L 10/10/24 05:40 Labs on day of discharge: Preliminary micro results at discharge 10/09/24 19:26 Blood Culture - Preliminary Blood - Venous No growth after 48 hours. 10/09/24 16:52 Blood Culture - Preliminary Blood - Venous No growth after 48 hours. 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] - 1 Week PhysicianJoseluis [Primary Care Provider, Medical] - 1 Week Discharge Medications: New nicotine 14 mg/24 hr Patch 24 Hour 14 mg transdermal DAILY Qty: 30 0RF clindamycin HCl 300 mg Capsule 300 mg PO TID Qty: 15 0RF levothyroxine [Synthroid] 100 mcg Tablet 100 mcg PO DAILY@0600 Qty: 30 0RF Continued ferrous sulfate 325 mg (65 mg iron) Tablet 325 mg PO DAILY loratadine [Claritin] 10 mg Tablet 10 mg PO DAILY se-[id number]-Ca carb-vit K 18 mg iron-400 mcg-500 mg Tablet 1 tab PO DAILY ibuprofen-acetaminophen [Dual Action Pain Reliever] 125-250 mg Tablet 2 tab PO Q8H PRN (Reason: Pain) doxycycline hyclate 100 mg tablet 100 mg PO BID Qty: 10 0RF Discontinued metronidazole 500 mg tablet 500 mg PO Q8H Qty: 21 0RF Discharge Orders: Discharge Order (Routine); Ordered 10/12/24 Ordered By: Tahir Whitley Diet: Advance to usual diet Activity on Discharge: As tolerated Stand Alone Forms: Patient Portal Discharge page Print Language: Japanese Other Ambulatory Orders: Thyroid Stimulating Hormone (Routine) Timeframe: 1 Month Facility: [facility] - Location: Laboratory Ordered By: Tahir Whitley Care Plan Goals: cure infection Health Concerns: cellulitis due to cat bite untreated hypothyroidism Plan of Treatment: take clindamycin 300 mg 3x a day PLUS doxycyclin 100 mg 2x a day for 5 days range of motion exercises for hand; follow up with [facility] and [facility]ational Therapy return to hospital to complete rabies vaccinations 10/13, 10/17, and 10/24 take levothyroxine 100 mcg daily and recheck TSH in 4 weeks establish primary care as soon as possible Return to the hospital if you experience recurrent or worsening symptoms. Assessment: See Discharge Summary.
[2024-10-12 12:00] VITALS: BP 130/89; PULSE 89; RESP 18; TEMP 37.1; O2SAT 97
--- NOTE | 2024-10-12 12:56 | MHC.CM.PN ---
Patient discharged to home today self care. She has arranged for transport home.
== END 2024-10-12 12:36 | disposition home or self-care (01) | DRG 383 ==
LOC: HO.ED 20:44 → HO.EDOVER 21:00 → HO.S3 21:16
PROVIDERS: Internal Medicine; Physician Assistant Medical; Admitting Provider Hospitalist; Emergency Provider Emergency Medicine; Visit Provider Family Medicine
DX: L03.114 Cellulitis of left upper limb (principal); E03.9 Hypothyroidism, unspecified; L03.113 Cellulitis of right upper limb; S61.432A Puncture wound without foreign body of left hand, initial encounter; S61.431A Puncture wound without foreign body of right hand, initial encounter; W55.01XA Bitten by cat, initial encounter; F17.210 Nicotine dependence, cigarettes, uncomplicated; Z71.6 Tobacco abuse counseling; T38.1X6A Underdosing of thyroid hormones and substitutes, initial encounter; Z20.3 Contact with and (suspected) exposure to rabies; Z23 Encounter for immunization; Z88.0 Allergy status to penicillin; Z79.890 Hormone replacement therapy; Z79.899 Other long term (current) drug therapy
CPT/HCPCS: 36415; 73130; 80048; 80053; 83605; 84439; 84443; 85025; 85652; 86140; 87040; 90375; 90675; 97110; 97165; 99285; J0692; J1171; J1650; J1836; J1956; J2405; J7120

== ENCOUNTER → 2024-10-09 19:23 | Outpatient (BNV) | payer MEDICAID, SELFPAY | PROVIDERS: Emergency Provider Emergency Medicine; Visit Provider Radiology Vascular & Interventional Radiology | DX: L03.114 Cellulitis of left upper limb (principal); L03.113 Cellulitis of right upper limb | CPT/HCPCS: 73130 ==

== ENCOUNTER → 2024-10-09 20:52 | Outpatient (BNV) | payer MEDICAID, SELFPAY | PROVIDERS: Admitting Provider Hospitalist; Emergency Provider Emergency Medicine; Visit Provider Physician Assistant | DX: L03.114 Cellulitis of left upper limb (principal); L03.113 Cellulitis of right upper limb | CPT/HCPCS: 99222; 99232 ==

== ENCOUNTER → 2024-10-09 20:52 | Outpatient (BNV) | payer MEDICAID, SELFPAY | PROVIDERS: Admitting Provider Hospitalist; Emergency Provider Emergency Medicine; Visit Provider Internal Medicine | DX: L03.114 Cellulitis of left upper limb (principal); L03.113 Cellulitis of right upper limb | CPT/HCPCS: 99222; 99499 ==

== ENCOUNTER → 2024-10-09 20:52 | Outpatient (BNV) | payer MEDICAID, SELFPAY | PROVIDERS: Admitting Provider Hospitalist; Emergency Provider Emergency Medicine; Visit Provider Internal Medicine | DX: L03.114 Cellulitis of left upper limb (principal); L03.113 Cellulitis of right upper limb | CPT/HCPCS: 99223; 99231; 99232 ==

== ENCOUNTER 2024-10-24 13:31 | Outpatient (AMB) | payer OTHER, SELFPAY ==
--- NOTE | 2024-10-24 13:44 | MHC.OFFVIS ---
Vital Signs 10/24/24 13:46 Height 5 ft 2 in Weight 160 lb BMI 29.3 Intake Visit Reasons: ED f/u Cellulitis of hand, left Intake Note: Dwaine 48 yr old right hand dominant female who works at [employer], presents today for her S/P ED follow up visit on 10/08/24 & 10/09/24 for evaluation of cat scratches to her left arm and face. As per ED note this was an encounter with her own cat who is an indoor cat. Patient tried to pick up man her cat, cat become aggressive and scratch patient on her left arm/wrist and ribs side of her face. Patient was prescribed antibiotics and was advise to finish medication and was referred to orthopedic for further evaluation. Currently states she has a little pain on her volar aspect of wrist when bending at wrist. Patient explains she has concerns regarding her right index finger, states since date of injury, her finger has been swollen and limited ROM. Pain is worse with movement, pain comes and goes through out the day. Denies numubness, tingling or locking of any finger. Accompanied by: Brian Son Allergies Penicillins (PCN) Allergy (Verified 10/24/24 13:50) Unknown HPI HPI ED f/u Cellulitis of hand, left: Details: Dwaine is a 48 year old right hand dominant woman who presents primarily for right index finger pain. She is S/P cat bite/scratches to her bilateral hands. She was seen in the ED on 10/08/24 for cellulitis, and was admitted to the hospital for Abx treatment. She had multiple bite wounds in both hands. She complains primarily of intermittent pain, swelling, and limited ROM of her right index finger. She denies any numbness or tingling. She also complains of mild pain in her left wrist, worse with flexion/extension She says she just finished her PO Abx last week. 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 She is to be seen today by ID for her last rabies vaccination. [facility] Surgical History (Updated 10/24/24 @ 13:54 by KAYLEE Hinton) H/O tubal ligation Social History (Updated 10/24/24 @ 13:54 by KAYLEE Hinton) Household Members: Family Housing: House Do you presently have visiting nurse or other home services: No Alcohol intake: former Patient Tobacco Use Status: Never used Tobacco Tobacco use type: Cigarette Cigarettes Per Day: 3 Years Smoked: 15 e-Cigarette/Vaping Use: Never Used service: No Current occupation: [employer]/ cafeteria/ rt hand Review of Systems Const All systems reviewed & are unremarkable except as noted in HPI and below Physical Exam Vital Signs: BMI result Body Mass Index 29.3 Const General: cooperative, healthy appearing and no acute distress Orientation/consciousness: patient oriented x3 HEENT Head: Yes normocephalic and Yes atraumatic Eyes EOM: EOMs intact bilaterally Resp Effort & Inspection: normal respiratory effort and able to speak in complete sentences Cardio Jugular venous distension: no JVD Skin General skin exam: turgor normal Rashes: no rashes Neuro General: patient oriented x3 Extrem Other: Evaluation of Bilateral Upper Extremity: The patient is alert, oriented, and in no acute distress Neuro: Median, Ulnar, Radial nerves motor and sensory intact and sensation is normal to the tips of all digits Vascular: Cap refill brisk ROM: She can make a fist and extend all her digits, with some stiffness in her right index finger Skin: Healed cat bites to the dorsal aspect of her left hand & wrist, and primarily her right index finger in the right hand Her right index finger is still somewhat swollen but improved, no erythema No Ecchymosis. 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 They show no fractures or dislocations. There is a partial amputation of the left middle finger, distal half of the distal phalanx Psych Appearance: grossly normal Affect: normal affect Attitude: cooperative Assessment & Plan Assessment & Plan (1) Stiffness of finger joint of right hand: Comment: IF Code(s): M25.641 - Stiffness of right hand, not elsewhere classified Category: Medical (2) Cat bite: Code(s): W55.01XA - Bitten by cat, initial encounter Category: Medical Plan Assessment & Plan: 1. Right index finger stiffness & swelling, secondary to cat bite 2. Bilateral hand cat bite, DOI: 10/08/24 Healed lacerations to bilateral hands No evidence of infection I educated her about this condition I discussed treatment options I recommend OT hand therapy & activity modification, and she is in agreement I explained the signs and symptoms of infection, if the patient develops any new or worsening erythema, drainage, pain, or warmth they should contact the clinic or attend the ED. I discussed activity modifications, she should work on ROM exercises at home I ordered OT hand therapy to work on stretching, strengthening, and normalizing function She works in the cafeteria at a school. 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 She declined a work note today She can follow up prn Scribed for Aysha More MD by Ellis Dukes, bilingual medical receptionist, on 10/24/24 at 2:20 PM, EST. Orders: Orders OT Evaluation and Treatment Today L03.113 - Cellulitis of right upper limb, L03.114 - Cellulitis of left upper limb, M25.641 - Stiffness of right hand, not elsewhere classified, W55.01XA - Bitten by cat, initial encounter Medications: Discontinued clindamycin HCl Discontinued Reason: Patient Completed Course 300 mg PO TID 15 caps 0RF nicotine Discontinued Reason: Patient no longer taking 14 mg transdermal DAILY 30 ea 0RF doxycycline hyclate Discontinued Reason: Patient Completed Course 100 mg PO BID 10 tabs 0RF Coding Level of Care Code New Pt Level 3 (60016) Diagnoses Stiffness of finger joint of right hand M25.641 Cat bite W55.01XA
[2024-10-24 13:46] VITALS: BMI 29.3
--- OUTSIDE RECORDS SUMMARY | 2024-10-24 16:01 | XMS_ITS | Clinical Summary ---
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
== END 2024-10-24 14:24 | disposition home or self-care (01) ==
LOC: HO.HOS 13:31
PROVIDERS: Visit Provider Orthopaedic Surgery
DX: M25.641 Stiffness of right hand, not elsewhere classified (principal); W55.01XA Bitten by cat, initial encounter
CPT/HCPCS: 99203

== ENCOUNTER → 2024-10-24 13:31 | Outpatient (BNVA) | payer OTHER, SELFPAY | PROVIDERS: Visit Provider Orthopaedic Surgery | DX: M25.641 Stiffness of right hand, not elsewhere classified (principal); W55.01XA Bitten by cat, initial encounter | CPT/HCPCS: 99202 ==

== ENCOUNTER → 2024-10-24 14:35 | Outpatient (RCR) | payer MEDICAID, SELFPAY ==
[2024-10-13 15:47] VITALS: BP 157/90; PULSE 80; RESP 16; TEMP 36.4; O2SAT 98
[2024-10-13] MEDS: Rabies Vaccine (PCEC)/PF 1 ML VIAL IM (15:49)
[2024-10-17 14:51] VITALS: BP 133/80; PULSE 83; RESP 16; TEMP 36.2; O2SAT 97
[2024-10-17] MEDS: Rabies Vaccine (PCEC)/PF 1 ML VIAL IM (14:52)
[2024-10-24 14:32] VITALS: BP 140/88; PULSE 86; RESP 16; TEMP 36.6; O2SAT 97
[2024-10-24] MEDS: Rabies Vaccine (PCEC)/PF 1 ML VIAL IM (14:33)
== END | disposition home or self-care (01) ==
LOC: HO.INF 10-13 15:44
PROVIDERS: Visit Provider Physician Assistant
DX: Z20.3 Contact with and (suspected) exposure to rabies (principal); T14.8XXD Other injury of unspecified body region, subsequent encounter; W55.01XD Bitten by cat, subsequent encounter
CPT/HCPCS: 90471; 90675

== ENCOUNTER 2024-11-28 15:08 | Outpatient (RCR) | payer OTHER, SELFPAY ==
--- NOTE | 2024-11-03 15:12 | MHC.OT.EP ---
[facility] Office [address] [phone] F: [phone] F: [phone] Occupational Therapy Plan of Care Patient Name: Dwaine Ruiz Date of Evaluation: 11/03/24 Diagnosis: STIFFNESS S/P CAT BITES Pain Location: L RADIAL WRIST (DORSAL/VOLAR) 7-8/10 AT REST 9/10 WITH USE R IF PIPj 9/10, 7/10 WITH USE Pain Score: 7-9/10 Pain Scale Used: Numeric (0 - 10) Aggravating Factors: LIFTING, CARRYING, PROLONGED USE Alleviating Factors: COMPRESSION GLOVE, ADVIL, ICING Assessment: MS MEJÍA SUSTAINED CAT SCRATCHES TO B/L HANDS AND FOREARMS ALMOST FOUR WEEKS AGO, WHICH RESULTED IN CELLULITIS. SHE HAS COMPLETED HER COURSE OF ABX AND NOW P/W STIFFNESS IN R INDEX FINGER AND PAIN IN L RADIAL WRIST. 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 A 52% LIMITATION IS REPORTED PER THE QUICK DASH ASSESSMENT. ONGOING OT IS WARRANTED TO IMPROVE FUNCTIONAL USE OF UEs AND QOL. Frequency and Duration: The patient will be seen 2X/WEEK FOR 4 WEEKS Short Term Goals: IND HEP IND EDEMA MANAGEMENT STRATEGIES REPORT <6/10 PAIN WITH LIGHT ADLs ACHIEVE <1 CM TIP TO DPC OF R IF Intermediate Goals: TOLERATE LIFTING >20 POUNDS WITH PROPER BODY MECHANICS FLOOR TO WAIST REPORT <4/10 PAIN WITH IADLs QUICK DASH <30% Treatment Plan: Therapeutic Exercise Therapeutic Activity Home Exercise Program Splinting Neuro Re-ed Patient Education Desensitization/Sensory Re-ed Edema Control ADL Training Ultrasound NMES Iontophoresis Paraffin Fluidotherapy MHP Cold Packs Joint Mobilization Soft Tissue Mobilization Kinesiotaping Other (see comments) Electronically Signed By: MURRAY EARL OTR/L Please Sign and return to therapist. Thank you once again for your referral.
--- NOTE | 2024-11-28 15:29 | MHC.OT.DC ---
[facility] Office [address] [phone] F: [phone] F: [phone] Occupational Therapy Discharge Note Patient Name: Dwaine Ruiz Provider: Dr Aysha More Diagnosis: STIFFNESS S/P CAT BITES Date of Evaluation: 11/03/24 Date of Discharge: 11/28/24 Treatments to Date: 7 Cancellations to Date: 0 No Shows to Date: 0 Discharge Status: Achieved Goals Improved Function Independent with HEP Discharge Summary: Dwaine was seen s/p cat bite, initiated therapy in hospital and then referred to outpatient for continued care. She has done very well with full reutrn of B/L hand strength and ROM. Goals met and pt Ind w/ home exercise and self management. No issues w/ home or work tasks. Electronically Signed By: Jacqui Betancur OTR/L CHT Reviewed/agree with student documentation: N/A Therapist: Please Sign and return to therapist, thank you for your referral.
== END 2024-11-28 15:30 | disposition home or self-care (01) ==
LOC: HO.OT 15:08
PROVIDERS: Visit Provider Orthopaedic Surgery
DX: M25.641 Stiffness of right hand, not elsewhere classified (principal); L03.113 Cellulitis of right upper limb; L03.114 Cellulitis of left upper limb
CPT/HCPCS: 97110; 97140; 97166